=== PATIENT | male | born 1960 | race Caucasian/White ===

== ENCOUNTER 2016-07-08 15:27 | Inpatient (IN) | payer OTHER ==
[~2016-07-08] VITALS: Ht 172.7 cm; Wt 99.5 kg
[~2016-07-08 15:27] MED LIST: GABA100C4 PO; LORA-373 PO
[2016-07-08] MEDS ORDERED: FENT50DI T-DERMAL (16:52)
[2016-07-08 19:48] VITALS: BP 136/73; PULSE 106; RESP 20; TEMP 98; O2SAT 98
[2016-07-08] MEDS ORDERED: NALOXONE HCL 0.4 MG/ML AMP IV PRN (20:30)
[2016-07-08] MEDS: SODIUM CHLORIDE 0.9% FLUSH 10 ML FLUSH IV FLUSH SCH (21:51)
--- NOTE | 2016-07-08 22:24 | HHI.HP ---
[facility] Unknown Admission Diagnosis Diagnoses: History of Present Illness fell twice in 2 weeks first tiem walking out of room and foot got stuck with gym equipmenet and fell second time was next week- reaching out to pull curtain and roller got away from him from walker got away and fell again did not hit head d id not pass out did not go for med attention family called hospice staff got more euqipment to help at home on hospice at home has melaoma on right chest diagnosed 20yrs ago had sx had chemo adn radiation last dose chemo about 16-17yrs ago last radiation abotu same time too as far as he knows, no other intervention or med attention for this till now brother set him up on hospice about 2 weeks ago after fall Past Family Social History Past Medical History Melanoma Past Surgical History melanoma resection Reported Medications on pain meds from hospice Allergies: Coded Allergies: No Known Allergies (Unverified , 07/08/16) Family History none that he knows of Social History smoke 10-15 cigarrettes a day no drinking, used to drink heavily quit 4 yrs ago no drugs Physical Exam Physical Exam GENERAL: This is a well-nourished, well-developed patient, in no apparent distress. SKIN: Large left fungating wound with foul-smelling discharge HEAD: Atraumatic. Normocephalic. No temporal or scalp tenderness. EYES: No scleral icterus. No injection or drainage. ENT: Nose without bleeding, purulent drainage or septal hematoma. Airway patent. NECK: Trachea midline. No JVD CARDIOVASCULAR: Regular rate and rhythm without murmurs, gallops, or rubs. RESPIRATORY: Clear to auscultation. Breath sounds equal bilaterally. Abdomen: Soft, nontender, no rebound. No guarding. MUSCULOSKELETAL: Right foot with gangrenous toes. Surrounding erythema,. Poor dorsalis pedis pulses Neuro: Awake, alert, oriented. Normal speech. No focal deficits noted. Generalized weakness present. Assessment and Plan Assessment and Plan Impression: right foot gangrene right chest melanoma Plan: Patient was started on vancomycin and Zosyn per creatinine clearance and levels. Start patient on heparin drip. Physical surgery consult. Also would consult oncology since patient reports that he was actually lost to follow-up due to lack of insurance and he would really like to know why his melanoma is not healing and whether it has spread. He has no idea why he is on hospice. He stated this was only arranged about 2 weeks ago by his brother. As for as he knows his cancer has not spread anywhere. Consult palliative care to clarify goals of care as well. Patient reports he wants full code at present. DVT prophylaxiswith heparin drip. GI prophylaxis on pantoprazole. Physician Certification Order for Inpatient Services The services are ordered in accordance with Medicare regulations or non- Medicare payer requirements, as applicable. In the case of services not specified as inpatient-only, they are appropriately provided as inpatient services in accordance with the 2-midnight benchmark. days is the estimated time the patient will need to remain in the hospital, assuming treatment plan goals are met and no additional complications. Frank Gage MD July 08, 2016 22:24
[2016-07-08] MEDS ORDERED: Vancomycin Consult Pharmacy 1 EA OTHER SCH (22:45)
[2016-07-08] MEDS: MORPHINE SULFATE 4 MG/ML INJ IV PUSH PRN (22:48)
[2016-07-08] MEDS: PIPERACIL-TAZO 4.5 GM PREMIX 100 ML IV SCH (23:27)
[2016-07-08] MEDS: HEPARIN-D5W INJ 250 ML IV SCH (23:39)
[2016-07-09] VITALS (7 sets, daily range): BP systolic 73–141; BP diastolic 69–82; PULSE 110–123; RESP 20; TEMP 97.7–98.5; O2SAT 92–98
[2016-07-09] MEDS: MORPHINE SULFATE 4 MG/ML INJ IV PUSH PRN ×6 (01:54→23:36)
[2016-07-09] MEDS ORDERED: VANCOMYCIN 1,000 MG/NS 250 ML IV ONE ×2 (02:00)
[2016-07-09] MEDS: PIPERACIL-TAZO 4.5 GM PREMIX 100 ML IV SCH ×4 (05:13→23:35)
[2016-07-09 05:55] LABS: BASOPHIL # 0.1 TH/MM3 (0-0.2); BASOPHIL % 0.7 % (0.0-2.0); EOSINOPHIL % 0.4 % (0.0-4.0); HEMATOCRIT 30.1 % (39.0-51.0); HEMO FLAGS DIFF FINAL; LYMPH % 10.7 % (9.0-44.0); LYMPHOCYTE # 1.2 TH/MM3 (1.0-4.8); MEAN CELL VOLUME 92.8 FL (80.0-100.0); MEAN CORPUSCULAR HEMOGLOBIN 29.9 PG (27.0-34.0); MEAN CORPUSCULAR HGB CONC 32.2 % (32.0-36.0); MONO % 7.5 % (0.0-8.0); NEUT % 80.7 % (16.0-70.0); PLATELET COUNT 448 TH/MM3 (150-450); RED BLOOD COUNT 3.25 MIL/MM3 (4.50-5.90); RED CELL DISTRIBUTION WIDTH 19.9 % (11.6-17.2); WHITE BLOOD COUNT 11.1 TH/MM3 (4.0-11.0)
[2016-07-09 06:19] LABS: BICARBONATE 24.3 MEQ/L (21.0-32.0); POTASSIUM 4.1 MEQ/L (3.5-5.1)
[2016-07-09] MEDS: SODIUM CHLORIDE 0.9% FLUSH 10 ML FLUSH IV FLUSH SCH ×2 (09:00→19:37)
[2016-07-09] MEDS: PANTOPRAZOLE SOD 40 MG DELAYED RELEASE TAB PO SCH (09:00)
[2016-07-09] MEDS ORDERED: ENOXAPARIN SODIUM 40 MG/0.4 ML SYRINGE SQ SCH (09:00)
[2016-07-09] MEDS ORDERED: PNEUMOCOCCAL POLYVALENT INJ 25 MCG/0.5 ML SYR IM ONE (10:00)
[2016-07-09 12:43] LABS: APTT (PATIENT) 35.6 SEC (24.3-30.1)
[2016-07-09] MEDS: VANCOMYCIN 1,000 MG/NS 250 ML IV SCH ×2 (14:00)
--- NOTE | 2016-07-09 16:20 | PD.CONS ---
Consult Service Palliative Care . Consult Requested By Dr. Gage . Primary Care Physician Unknown . Reason for Consultation a. To assist with evaluation and management of symptoms including: pain RLE. b. To assist medical decision maker(s) with: better understanding of current medical conditions; weighing benefits/burdens of medical treatment options; making medical treatment decisions. . (RUTH EDOUARD) HPI History of Present Illness Mr. Quinones is a 56 year old male with past medical history of melanoma of right chest (20 years ago) with new wound in this area, PVD, COPD, bipolar disorder and tobacco abuse. Patient reports he had resection of melanoma 20 years ago, then he recently picked at the scar and it got worse. He is a poor historian. He reports foot wound for the past 3-4 weeks. Notes indicate he was on hospice prior to admission, he does not know which hospice and tells me they were coming to help him bathe. Patient presented to [facility] on 07/08/16 with right foot wound and pain. He is admitted with gangrene right LE. Oncology consult pending as patient has been lost to oncology follow up and has a wound in prior melanoma sight that is not healing. CTA runoff and CT foot pending. Dr. Tan was consulted for evaluation and recommendations regaridnf right foot gangrene. In meeting with colin today he is unable to provide clear history. He does not want to designate a health care surrogate. He is painful and restless during my visit. He is having difficulty concentrating. He will not allow me to see wound on chest. He tells me he is tired of all these people coming in and asking him questions. Iexplained we are all trying to help him. He desires FULL CODE, does not want to talk about advanced directives. He told me I could call his brother. I will attempt to speak with brother once additional consults/ tests are complete. Palliative care social media developer will attempt to call for additional social history and to obtain details of hospice history today. . Function/Cognitive Trajectory Appears he has had some decline, though he can only tell me he lives with his brother and sister in law and he needs help bathing. , (RUTH EDOUARD) Review of Systems Constitutional: COMPLAINS OF: Fatigue, Change in appetite (decreased), Pain ( right foot and chest intermittent), Generalized weakness Eyes: COMPLAINS OF: Blurred vision (wears readung glasses, but tells me he doesn't read. ) Respiratory: COMPLAINS OF: Cough, Shortness of breath Cardiovascular: COMPLAINS OF: Dyspnea on Exertion, Lower Extremity Edema ( bilateral) Gastrointestinal: COMPLAINS OF: Anorexia Musculoskeletal: COMPLAINS OF: Joint pain Integumentary: COMPLAINS OF: Abnormal pigmentation (right LE ), Non-healing sores (chest and Right LE) Hematologic/Lymphatics: COMPLAINS OF: Bruising Psychiatric: COMPLAINS OF: Anxiety, Depression, Agitation Other ROS: restlessness (RUTH EDOUARD) Past Family Social History Coded Allergies: No Known Allergies (Unverified , 07/08/16) Past Medical History Per pt report: Melanoma history COPD Tobacco and alcohol abuse Bipolar disorder . Past Surgical History Melanoma resection . Reported Medications Medication reconciliation gabapentin 100 mg PO TID lorazepam 0.5 mg PO Q6 hours PRN anxiety fentanyl patch 50 g every 72 hours . Current Medications Medications (Trade) Dose Ordered Sig/[place] Route Start Time Stop Time Status Last Admin (NS Flush) 2 ml UNSCH PRN IV FLUSH 07/08/16 20:30 (NS Flush) 2 ml BID IV FLUSH 07/08/16 21:00 07/09/16 09:00 (Narcan Inj) 0.4 mg UNSCH PRN IV 07/08/16 20:30 Morphine Sulfate 2 mg 2 mg Q3H PRN IV PUSH 07/08/16 22:30 07/09/16 11:45 Pharmacy Profile Note 0 ml @ 0 mls/hr UNSCH OTHER 07/08/16 22:45 Piperacillin Sod/ Tazobactam Sod 100 ml @ 200 mls/hr Q6H IV 07/08/16 23:00 07/09/16 11:00 (Heparin-D5W Inj) 250 ml @ 0 mls/hr TITRATE IV 07/08/16 22:45 07/08/16 23:39 Pantoprazole Sodium 40 mg 40 mg DAILY PO 07/09/16 09:00 07/09/16 09:00 (Vancomycin Inj/ NS 250 ml Inj) 250 ml @ 250 mls/hr Q12H IV 07/09/16 14:00 07/09/16 14:00 Miscellaneous Information SPECIFIC LAB TO BE DRAWN:VANCOMYCIN TROUGH DATE TO... ONCE ONCE .XX 07/10/16 01:45 07/10/16 01:46 . Family History Parents uncertain causes. Brother with ALS. . Substance Use Per pt report: Tobacco: Smokes 10-15 cigarettes per day for 40 years. Alcohol: Drank heavily until 4 years ago. Prescription med abuse: None. Illicits:Marijuana use until 4 years ago. . Psychosocial History Not , No children. Lives with brother and sister in law. 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 Completed 10th grade. . Spiritual/Cultural Factors Not an important part of his life. . (RUTH EDOUARD) Past Medical History Alcohol abuse Bipolar manic depressive- 1-2 year cycle period- multiple psychiatric admissions Reportedly diagnosed with melanoma around age 28-30, essentially untreated. Some radiation while in assisted for 2 years. Refused surgery around 2.5 years ago, now reportedly metastatic. . Reported Medications Prior to hospice ([facility]) admission patient was on Depakote and Latuda, unknown dosage. . Family History Parents and siblings alcoholics or recovering alcoholics. Siblings with manic depression. . Psychosocial History Originally from [place]. Moved to [place] in 1968. Not . No children. 3 brothers. Patient has minimal contact with 2 other brothers. Lives with 1 brother and sister in law for past 2.5 years. Described as "nonsocial". Patient was on [facility] prior to this hospitalization. He was seeing a psychiatrist up until admission to hospice. Brother reports Mr. Quinones has manic depression with a 1-2 year cycle. Currently off medication, in past has taken Depakote and Latuda, dosage unknown. Reportedly multiple psychiatric admissions. Struggled with alcoholism up until into brother's home. . (Estrella Alexandra YARN PREPARATION SUPERVISOR, SERVICE SUPERVISOR) Living Will: Never completed Health Care Surrogate: Never completed Durable Power of Tool Turret Lathe Set Up Operator: Never completed Health Care Surrogate(s): Patient considering completing designation of healthcare surrogate form. Indicates he would likely want his brotherDinh to serve as healthcare surrogate. Will attempt to determine if he completed advance directives while on hospice services. . Today's verbally stated goals: Desires FULL CODE and continued aggressive care. Indicates he would want amputation if needed. . Family/friends goals: Will attempt to speak with patient's brother once additional medical tests/ consultations are available on 07/10/16. . Ethical and Legal Issues Patient considering completing designation of healthcare surrogate form. Indicates he would likely want his brother, Dinh to serve as healthcare surrogate. Will attempt to determine if he completed advance directives while on hospice services. . (RUTH EDOUARD) Physical Exam Vital Signs Date Time Temp Pulse Resp B/P Pulse Ox O2 Delivery O2 Flow Rate FiO2 07/09/16 12:00 98.2 110 20 121/69 98 07/09/16 08:00 94 Room Air 07/09/16 08:00 98.4 120 20 114/75 97 07/09/16 04:00 98.5 117 20 73/ 94 07/09/16 00:00 98.1 123 20 138/75 95 07/08/16 21:55 Room Air 07/08/16 19:48 98.0 106 20 136/73 98 07/08/16 07/09/16 19:00 07:00 Intake Total 240 ml Output Total 400 ml Balance -160 ml Intake Oral 240 ml Output Urine Total 400 ml Exam CONSTITUTIONAL/GENERAL: This is an thin, chronically ill appearing patient, appears restless during my visit. Having a difficult time concentrating. TUBES/LINES/DRAINS: PIV left AC, right forearm. SKIN: peripheral vascular changes redness, erythema right lower extremity toes to mid calf, gangrenous toes right foot. Ecchymoses on upper extremities. Dressing present chest wall, wound not examined. Skin temperature appropriate. Not diaphoretic. HEAD: Atraumatic. Normocephalic. EYES: Pupils equal and round and reactive. Extraocular motions intact. No scleral icterus. No injection or drainage. Fundi not examined. ENT: Hearing grossly normal. Nose without bleeding or purulent drainage. Throat without visible erythema, exudates, masses, or lesions. NECK: Trachea midline. CARDIOVASCULAR: tachycardic. No JVD. RESPIRATORY/CHEST: Symmetric, mildly labored respirations at rest. Diminished breath sounds bilaterally. GASTROINTESTINAL: Abdomen soft, non-tender, nondistended. GENITOURINARY: Without palpable bladder distension. Voids in urinal. MUSCULOSKELETAL: Extremities with edema. Gangrenous toes right foot. LYMPHATICS: not examined. NEUROLOGICAL: Awake and alert. Generalized weakness. Easily agitated. Cognitively sharp. Moves all extremities. PSYCHIATRIC: agitated, restlessness, verbalizes annoyance with questioning exam of multiple providers. . (RUTH EDOUARD) Diagnostic Tests Laboratory Laboratory Tests Test 07/09/16 07/09/16 05:23 12:00 White Blood Count 11.1 TH/MM3 (4.0-11.0) Red Blood Count 3.25 MIL/MM3 (4.50-5.90) Hemoglobin 9.7 GM/DL (13.0-17.0) Hematocrit 30.1 % (39.0-51.0) Mean Corpuscular Volume 92.8 FL (80.0-100.0) Mean Corpuscular Hemoglobin 29.9 PG (27.0-34.0) Mean Corpuscular Hemoglobin 32.2 % Concent (32.0-36.0) Red Cell Distribution Width 19.9 % (11.6-17.2) Platelet Count 448 TH/MM3 (150-450) Mean Platelet Volume 6.4 FL (7.0-11.0) Neutrophils (%) (Auto) 80.7 % (16.0-70.0) Lymphocytes (%) (Auto) 10.7 % (9.0-44.0) Monocytes (%) (Auto) 7.5 % (0.0-8.0) Eosinophils (%) (Auto) 0.4 % (0.0-4.0) Basophils (%) (Auto) 0.7 % (0.0-2.0) Neutrophils # (Auto) 9.0 TH/MM3 (1.8-7.7) Lymphocytes # (Auto) 1.2 TH/MM3 (1.0-4.8) Monocytes # (Auto) 0.8 TH/MM3 (0-0.9) Eosinophils # (Auto) 0.0 TH/MM3 (0-0.4) Basophils # (Auto) 0.1 TH/MM3 (0-0.2) CBC Comment DIFF FINAL Differential Comment Activated Partial 40.0 SEC 35.6 SEC Thromboplast Time (24.3-30.1) (24.3-30.1) Sodium Level 130 MEQ/L (136-145) Potassium Level 4.1 MEQ/L (3.5-5.1) Chloride Level 96 MEQ/L (98-107) Carbon Dioxide Level 24.3 MEQ/L (21.0-32.0) Anion Gap 10 MEQ/L (5-15) Blood Urea Nitrogen 7 MG/DL (7-18) Creatinine 0.65 MG/DL (0.60-1.30) Estimat Glomerular Filtration 126 ML/MIN Rate (>89) Random Glucose 98 MG/DL (74-106) Calcium Level 8.9 MG/DL (8.5-10.1) (RUTH EDOUARD) Result Diagram: 07/09/1623 07/09/16522 Patient/Family Conference Present at Family Conference: Met with patient at bedside. Family Conference Time (mins): 40 Family Conference Location: Bedside Issues Discussed: * Palliative care role, purpose, approach * Additional medical, psychosocial, and spiritual history * Patients general health, functional status, and cognitive changes in the months leading up to the current hospitalization * Patient/family understanding of the current medical problems * Patient/family understanding of prognosis * Patients goals of care as best understood from advance directives and/or conversations and/or values * Current medical treatment options and benefits/burdens of those options * Likely scenarios comparing ongoing aggressive care with a transition to comfort measures only * Questions answered to the best of my ability * Palliative care contact information provided In summary patient is a poor historian, he tells me he does not want surgery today, though indicates he would want surgery/even amputation if needed. He does not seem to have great insight. Would recommend shared decision-making with patient's brother. Palliative care will continue to attempt to complete advanced directives with this patient. Will continue to clarify goals once additional consults and testing are complete. . (RUTH EDOUARD) Assessment and Plan Disease Oriented Problem List: (1) Cellulitis of foot (2) Gangrene (3) History of melanoma Comment: Chest wound (4) COPD (chronic obstructive pulmonary disease) (5) Bipolar disorder Symptom Scale: (1) Pain 0-10 Scale: 10 Comment: Intermittent, burning pain in right foot, intermittent pain in chest wound site, no relief with medications . (2) Anxiety 0-10 Scale: Unable to quantify Comment: Indicates intermittent anxiety, and long history of anxiety, appears restless and agitated during my visit, does not quantify anxiety. Pertinent Non-Medical Issues Psychosocial: Single. No children. Lives with brother and sister in law. Spiritual: Not an important part of his life. Legal: Patient considering completing designation of healthcare surrogate form. Indicates he would likely want his brotherDinh to serve as healthcare surrogate. Will attempt to determine if he completed advance directives while on hospice services. Ethical issues impacting care: No known concerns at this time. . Important Contacts * Dinh Quinones, brother: [phone] or [phone] * Princess Quinones, [id number]: [phone] . Prognosis Mr. Quinones is a frail, chronically ill appearing 56-year-old gentleman with gangrene right lower extremity, overall prognosis appears poor. Patient was on hospice services prior to admission, appears hospice appropriate of goals are comfort oriented. . Code Status: Full Code Plan * Patient considering completing designation of healthcare surrogate form. Indicates he would likely want his brotherDinh to serve as healthcare surrogate. Will attempt to determine if he completed advance directives while on hospice services. Recommend shared decision-making at this time is the patient has limited insight and is a poor historian. * FULL CODE. * Patient verbalizes desire for CODE and aggressive care including amputation if needed. He is a poor historian with limited insight, would recommend shared decision-making. Will attempt to complete advance directives and speak with his brothlyndsay Tao once additional test/consult completed. * Will attempt to discuss case with medical oncology, Dr. Tan once additional test results are available. * Estrella Carter LCSW contacted brother Dinh to introduce palliative care services and obtain additional social information. Will follow-up with medical update call on 07/10/16. * SYMPTOMS: pain: likely secondary to severe peripheral vascular disease/ gangrene right lower extremity. Was on fentanyl patch 50 g prior to admission. Has PRN morphine 2 mg IV Q3 hours PRN available. Will monitor need. Anxiety: self-reports history of anxiety, bipolar disorder, appears restless during my visit. Was on lorazepam prior to admission. Will monitor PRN need for pain control and make further recommendations. * Palliative care number provided. * Palliative care will continue to follow throughout hospital course to assist with symptom management and further clarification of treatment goals. (RUTH EDOUARD) Thank you for the opportunity to participate in the care of Mr. Quinones. (RUTH EDOUARD) Attestation To help prompt me to consider important information that might be impacting today's encounter and assessment, information from prior notes written by myself or my colleagues may have been "brought forward" into today's note. My signature on this note, however, is an attestation that I personally performed the exam, history, and/or decision-making noted today, and, unless otherwise indicated, the interactions with patient, family, and staff as well as the review of records all occurred today. I also attest that the listed assessment and stated plan reflect my best clinical judgment today based on the combination of historical information, prior notes, and today's exam/ interactions. When time spent is documented, it refers only to time spent today by the signer, or if indicated, combined time spent today by collaborating physician/nurse practitioner. (RUTH EDOUARD) RUTH EDOUARD Jul 09, 2016 16:20 Estrella Alexandra, SERVICE SUPERVISOR Jul 09, 2016 16:54
--- NOTE | 2016-07-09 18:35 | HHI.PR ---
Subjective Remarks patient inquiring about surgery denies any pain currently of the foot or chest 2 weeks ago- stuck his foot increasing pain and swelling discoloration of the toes Objective Vitals Vital Signs Date Time Temp Pulse Resp B/P Pulse Ox O2 Delivery O2 Flow Rate FiO2 07/09/16 16:00 97.7 110 20 123/82 94 07/09/16 12:00 98.2 110 20 121/69 98 07/09/16 09:00 18 07/09/16 08:00 94 Room Air 07/09/16 08:00 98.4 120 20 114/75 97 07/09/16 04:00 98.5 117 20 73/ 94 07/09/16 00:00 98.1 123 20 138/75 95 07/08/16 21:55 Room Air 07/08/16 19:48 98.0 106 20 136/73 98 I/O 07/08/16 07/08/16 07/08/16 07/09/16 07/09/16 07/09/16 07:00 15:00 23:00 07:00 15:00 23:00 Intake Total 240 ml 360 ml Output Total 400 ml 500 ml Balance -160 ml -140 ml Intake Oral 240 ml 360 ml Output Urine Total 400 ml 500 ml # Bowel Movements 0 Result Diagram: 07/09/16 0523 07/09/16522 Objective Remarks awake and alert, oriented x 3 anicteric lungs no rales chest wall wound- gauze dressing in place regular rhythm, tachycardic- 110 abdomen soft, nontender right foot- with marked swelling and erythema with gangrenous toes A/P Assessment and Plan 56 years old male Acute Right foot gangrene with cellulitis underlying PVD- seen at [facility]- ER- culture- growing gram negative rods -continue on IV antibiotics- Zosyn and Vanco - Vascular surgery consult- evaluate for amputation - on Heparin drip - checK CTA aorta run off . CT of the foot - percocet prn for pain History of right chest melanoma -OP ff up with Oncology - at one point under hospice- palliative care consulted HYponatremia- check TSH DVT prophylaxiswith heparin drip. GI prophylaxis on pantoprazole. Adelina Tafoya MD Jul 09, 2016 18:35
[2016-07-09] MEDS ORDERED: oxyCODONE/ACETAMINOPHEN 5 MG/325 MG TAB PO PRN (19:00)
[2016-07-09] MEDS: SODIUM CHLOR 0.9% 1000 ML INJ 1,000 ML IV SCH (19:41)
--- NOTE | 2016-07-09 20:37 | PD.CAR.PN ---
CVT Progress Note Subjective/Hospital Course: Referral received Full consult TF Stacy J Objective: Vital Signs Date Time Temp Pulse Resp B/P Pulse Ox O2 Delivery O2 Flow Rate FiO2 07/09/16 16:00 97.7 110 20 123/82 94 07/09/16 12:00 98.2 110 20 121/69 98 07/09/16 09:00 18 07/09/16 08:00 94 Room Air 07/09/16 08:00 98.4 120 20 114/75 97 07/09/16 04:00 98.5 117 20 73/ 94 07/09/16 00:00 98.1 123 20 138/75 95 07/08/16 21:55 Room Air Labs: Laboratory Tests Test 07/09/16 07/09/16 12:00 19:12 Activated Partial 35.6 SEC 43.0 SEC Thromboplast Time (24.3-30.1) (24.3-30.1) Result Diagram: 07/09/16 0523 07/09/16 0523 Vanessa Tan MD Jul 09, 2016 20:37
[2016-07-09] MEDS: HEPARIN-D5W INJ 250 ML IV SCH (23:45)
[2016-07-10] VITALS: BP 132/75; PULSE 113; RESP 20; TEMP 98; O2SAT 97
[2016-07-10] MEDS ORDERED: PHARMACY ORDERED LAB ONE (01:45)
[2016-07-10 02:08] LABS: APTT (PATIENT) 33.8 SEC (24.3-30.1)
[2016-07-10] MEDS: MORPHINE SULFATE 4 MG/ML INJ IV PUSH PRN ×4 (02:39→22:40)
[2016-07-10 02:40] LABS: ANION GAP 13 MEQ/L (5-15); BICARBONATE 22.9 MEQ/L (21.0-32.0); BLOOD UREA NITROGEN 6 MG/DL (7-18); CHLORIDE 96 MEQ/L (98-107); POTASSIUM 3.5 MEQ/L (3.5-5.1); SODIUM (NA) 132 MEQ/L (136-145)
[2016-07-10] MEDS: VANCOMYCIN 1,000 MG/NS 250 ML IV SCH ×6 (02:41→18:00)
[2016-07-10 02:48] LABS: ALKALINE PHOSPHATASE 90 U/L (45-117); ALT (GPT) 17 U/L (12-78); AST (GOT) 31 U/L (15-37); FERRITIN 770 NG/ML (26-388); GLOMERULAR FILTRATION RATE 147 ML/MIN (>89); TOTAL BILIRUBIN ADULT 0.6 MG/DL (0.2-1.0); TRANSFERRIN IRON PROFILE 110 MG/DL (200-360); VANCOMYCIN TROUGH 8.9 MCG/ML (5.0-10.0)
[2016-07-10 04:00] VITALS: BP 117/74; PULSE 119; RESP 20; TEMP 98; O2SAT 96
[2016-07-10] MEDS: PIPERACIL-TAZO 4.5 GM PREMIX 100 ML IV SCH ×5 (05:54→22:39)
[2016-07-10] MEDS ORDERED: LACTATED RINGER'S 1000 ML IV PRN (06:15)
[2016-07-10] MEDS ORDERED: INSULIN HUMAN REGULAR 1,000 UNITS/10 ML VIAL SQ PRN (06:15)
[2016-07-10] MEDS ORDERED: METOPROLOL TARTRATE 25 MG TAB PO PRN (06:15)
[2016-07-10] MEDS ORDERED: SODIUM CHLORID 0.9% 500 ML IV PRN (06:15)
[2016-07-10] MEDS ORDERED: CHLORHEXIDINE GLUCONATE 2 % 1 PACK (2 CLOTHS) TOPICAL PRN (06:15)
[2016-07-10] MEDS ORDERED: POVIDONE IODINE 5% (ANTISEPSIS KIT) 4 APPLICATIONS EACH NARE PRN (06:15)
--- NOTE | 2016-07-10 07:21 | MB ---
cc: BELIA LAZCANO MD DATE OF 1960 DATE OF SERVICE 07/09/[address] Lazcano CHIEF COMPLA[address] Lazcano requests consultation for Mr. Quinones with a diagnosis of recurrent malignant melanoma. HISTORY OF PRESENT ILLNESS Mr. Quinones is 56-year-old man with history of malignant melanoma of his chest wall which has been resected before. It has recurred. He presented after falling. He is actually under the care of [facility]. He is not able to tell me who referred him to Hospice. His philosophy is consistent with Hospice care. He actually did not want to participate in the consultation today. He states that he has explained his story many times to other doctors before. He does not want any radiation or chemotherapy. He does not want anything done to his right chest wall wound. His acute problem is the right lower extremity gangrene. He was started on antibiotic therapy and heparin. Surgery was consulted. He wishes to have aggressive management for his foot but not for his malignant melanoma. Palliative care was consulted. He was seen earlier. He complains of pain. He has difficulty walking. He reports picking at his wound and slight bleeding at sometimes. PAST MEDICAL HISTORY 1. Malignant melanoma recurrent. 2. COPD . 3. Chronic tobacco use. 4. Bipolar disorder. PAST SURGICAL HISTORY Melanoma resection. FAMILY HISTORY A brother with ALS. Parents . SOCIAL HISTORY He is an active smoker and drank heavily until 4 years ago. Denies any illicit drug use. Previously used marijuana. He lives with his brother and [id number]. PHYSICAL EXAMINATION VITAL SIGNS: Temperature 97.7, heart rate 110, respiratory rate 20, blood pressure 123/82, saturation 94%. GENERAL: Mr. Quinones is a chronically ill-appearing man who looks older than stated age. He has been cachectic. HEENT: He has bitemporal wasting. He is unshaven. His pupils are round and reactive to light and accommodation. Oropharynx is clear. NECK: Supple. LUNGS: Clear. CARDIOVASCULAR EXAM: Tachycardia. ABDOMEN: Benign. LOWER EXTREMITIES: With bilateral swelling, right more prominent than the left. There is gangrene of the right foot, mottled appearance with hyperpigmentation. LABORATORY DATA Leukocytosis, mild anemia with hemoglobin of 9.7. Chemistry: Sodium 130. ASSESSMENT AND PLAN: Mr. Quinones is a 56-year-old man with a history of malignant melanoma resected 20 years ago, now has a recurrence. He has an ulcer on his right chest wall. It is packed and has a wound. He declines treatment for that. He declines chemotherapy and radiation. I am unable to help this gentleman. He has also already decided at some point to proceed with Hospice care. I recommend he follow up with palliative care for palliative management of his symptoms. No specific therapy is required from the oncology standpoint. I defer any workup was he does not desire any treatment. His questions were answered to his satisfaction. Oncology will sign off at this point. Cheryl Tomlin MD RAD/JUSTIN /6:48 PM /6:54 AM
[2016-07-10 08:00] VITALS: BP 131/77; PULSE 126; RESP 18; TEMP 98; O2SAT 94
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
[2016-07-10 09:00] VITALS: PULSE 110
[2016-07-10] MEDS ORDERED: BUPIVACAINE HCL PF 0.5% 30 ML VIAL NERV BLOCK ONE (09:00)
[2016-07-10] MEDS: PANTOPRAZOLE SOD 40 MG DELAYED RELEASE TAB PO SCH (09:00)
[2016-07-10] MEDS: SODIUM CHLORIDE 0.9% FLUSH 10 ML FLUSH IV FLUSH SCH ×2 (09:00→22:44)
[2016-07-10] MEDS ORDERED: PHENYLEPHRINE HCL 10 MG/ML VIAL IV ONE (09:10)
[2016-07-10] MEDS ORDERED: NORMOSOL R INJ 1,000 ML IV ONE (09:10)
[2016-07-10] MEDS ORDERED: PHENYLEPH/NS 1000 MCG/10 ML SYR IV ONE (09:10)
[2016-07-10] MEDS ORDERED: PROPOFOL 200 MG/20 ML AMP IV ONE (09:10)
--- NOTE | 2016-07-10 10:47 | PD.VS.CON ---
History of Present Illness Chief Complaint: right foot with rest pain for about 2-3 weeks with discoloration. Consult Requested by: Dr. Jordan History of Present Illness 56 year old male with right foot rest pain and discoloration and ischemic changes of his toes to his mid foot that has worsened over the past week. Past/Family/Social History Past Medical History neuropathy chronic pain right lower extremity. Home Medications Reported Medications Fentanyl Patch 72 HR 50 Mcg/Hr Patch50 Mcg T-DERMAL Q72H #10 PATCH Ref 0 Remove old patch when new one placed. 07/08/16 Lorazepam 0.5 Mg Tab0.5 Mg PO Q6H PRN (ANXIETY) Ref 0 07/08/16 Gabapentin 100 Mg Pwm850 Mg PO TID #90 CAP Ref 0 07/08/16 Coded Allergies: No Known Allergies (Unverified , 07/08/16) Physical Exam Vitals/I&O Date Time Temp Pulse Resp B/P Pulse Ox O2 Delivery O2 Flow Rate FiO2 07/10/16 08:00 98.0 126 18 131/77 94 07/10/16 04:00 98.0 119 20 117/74 96 07/10/16 00:00 98.0 113 20 132/75 97 07/09/16 20:19 116 07/09/16 20:00 98.0 116 20 141/79 92 07/09/16 19:30 Room Air 07/09/16 16:00 97.7 110 20 123/82 94 07/09/16 12:00 98.2 110 20 121/69 98 07/10/16 07/10/16 07/10/16 07:00 15:00 23:00 Output Total 400 ml Balance -400 ml Neuro: A&Ox3 Neck: no carotid bruits Heart: regular Lungs: CTA bilaterally Abdomen: soft and ND Vascular: No signals right DP or PT with cold cadaveric appearing foot. ischemic gangrenous changes of the toes and the dorsum of the foot with erythema extending across the level of the ankle. Triphasic signals bilateral femoral. left radial palpable and right radial absent. Laboratory Tests Test 07/09/16 07/09/16 07/10/16 07/10/16 12:00 19:12 01:10 02:00 Activated Partial 35.6 43.0 33.8 Thromboplast Time Sodium Level 132 Potassium Level 3.5 Chloride Level 96 Carbon Dioxide Level 22.9 Anion Gap 13 Blood Urea Nitrogen 6 Creatinine 0.57 Estimat Glomerular Filtration 147 Rate Random Glucose 100 Calcium Level 9.4 Iron Level 46 Total Iron Binding Capacity 154 Percent Iron Saturation 29.9 Ferritin 770 Total Bilirubin 0.6 Aspartate Amino Transf 31 (AST/SGOT) Alanine Aminotransferase 17 (ALT/SGPT) Alkaline Phosphatase 90 Total Protein 7.1 Albumin 2.7 Thyroid Stimulating Hormone 4.000 3rd Gen Vancomycin Level Trough 8.9 Blood Type A NEGATIVE Antibody Screen NEGATIVE Crossmatch Leukocyte-Reduced Red Blood Cells Blood Bank Comment Test 07/10/16 02:05 Blood Type A NEGATIVE Assessment and Plan Assessment: (1) Cellulitis of foot Status: Acute (2) Pain Status: Acute (3) Gangrene Status: Acute Plan 56 year old male scheduled for right lower extremity amputation today. Right foot is cadaveric with ischemic changes (gangrene of the toes extending proximally with ascending cellulitis). I agree with Dr. Jordan that the patient should undergo amputation of the right lower extremity. The right foot does not appear viable and is a risk to the patient. I discussed this with the patient. Mario Sun DO, FACS Resource Manager of Vascular Surgery KEYANA/Mario Harmon DO Jul 10, 2016 10:47
--- NOTE | 2016-07-10 11:05 | HHI.PR ---
Subjective Remarks anxious about the procedure no pain complains at present Objective Vitals Vital Signs Date Time Temp Pulse Resp B/P Pulse Ox O2 Delivery O2 Flow Rate FiO2 07/10/16 08:00 98.0 126 18 131/77 94 07/10/16 04:00 98.0 119 20 117/74 96 07/10/16 00:00 98.0 113 20 132/75 97 07/09/16 20:19 116 07/09/16 20:00 98.0 116 20 141/79 92 07/09/16 19:30 Room Air 07/09/16 16:00 97.7 110 20 123/82 94 07/09/16 12:00 98.2 110 20 121/69 98 I/O 07/09/16 07/09/16 07/09/16 07/10/16 07/10/16 07/10/16 07:00 15:00 23:00 07:00 15:00 23:00 Intake Total 240 ml 360 ml 650 ml Output Total 400 ml 500 ml 880 ml 400 ml Balance -160 ml -140 ml -230 ml -400 ml Intake Oral 240 ml 360 ml IV Total 650 ml Output Urine Total 400 ml 500 ml 400 ml 400 ml Stool Total 480 ml # Bowel Movements 0 Result Diagram: 07/09/16 0523 07/10/16 0110 Objective Remarks awake and alert, oriented x 3 anicteric lungs no rales chest wall deep open wound- gauze dressing in place regular rhythm, tachycardic- 110 abdomen soft, nontender right foot- with marked swelling and erythema with gangrenous toes A/P Assessment and Plan 56 years old male Acute Right foot gangrene with cellulitis underlying PVD- - growing gram negative rods -continue on IV antibiotics- Zosyn and Vanco - Vascular surgery taking him to OR today - on Heparin drip- held for surgery - percocet prn for pain History of right chest melanoma -OP ff up with Oncology - at one point under hospice- palliative care consulted - wound care team consult HYponatremia- asymptomatic. TSH pending from this am DVT prophylaxiswith heparin drip. GI prophylaxis on pantoprazole. Adelina Tafoya MD Jul 10, 2016 11:05
[2016-07-10] MEDS ORDERED: MORPHINE SULFATE 4 MG/ML INJ IV PUSH ONE ×2 (11:20→11:25)
[2016-07-10] MEDS ORDERED: MIDAZOLAM HCL 2 MG/2 ML VIAL ONE (11:33)
[2016-07-10] MEDS ORDERED: ACETAMINOPHEN 1000 MG/100 ML VIAL IV ONE (11:41)
[2016-07-10] MEDS ORDERED: fentaNYL CITRATE 250 MCG/5 ML AMP ONE (11:42)
[2016-07-10] MEDS ORDERED: *morphine SULFATE 8 MG/ML PERIprocedure ONLY ONE ×3 (13:32→13:49)
[2016-07-10] MEDS ORDERED: DO NOT ADM ANY ANTICOAGULANT DRUGS PRN (13:45)
[2016-07-10] MEDS ORDERED: *HYDROmorphone PF 1 MG VIAL PERIprocedural Use ONLY ONE ×2 (13:53→14:06)
[2016-07-10] MEDS ORDERED: LORazepam 2 MG/ML VIAL ONE (14:14)
[2016-07-10] MEDS: SODIUM CHLOR 0.9% 1000 ML INJ 1,000 ML IV SCH (14:28)
[2016-07-10] MEDS ORDERED: LORazepam 2 MG/ML VIAL IV PUSH ONE (14:30)
--- NOTE | 2016-07-10 15:06 | HHI.HCPN ---
Arrived to unit patient is off the floor, appears to have been taken to the operating room. Palliative care will continue to follow. . RUTH EDOUARD Jul 10, 2016 15:06
[2016-07-10 16:00] VITALS: BP 92/55; PULSE 94; RESP 18; TEMP 97.6; O2SAT 92
[2016-07-10 20:00] VITALS: BP 113/66; PULSE 100; PULSE 95; RESP 20; TEMP 97.7; O2SAT 99
[2016-07-11] VITALS (7 sets, daily range): BP systolic 91–117; BP diastolic 55–66; PULSE 93–115; RESP 18–20; TEMP 97.5–98.4; O2SAT 91–100
[2016-07-11] MEDS ORDERED: PHARMACY ORDERED LAB ONE (01:45)
[2016-07-11] MEDS: MORPHINE SULFATE 4 MG/ML INJ IV PUSH PRN ×5 (01:57→20:02)
[2016-07-11] MEDS: VANCOMYCIN 1,000 MG/NS 250 ML IV SCH ×4 (01:57→09:02)
[2016-07-11] MEDS: PIPERACIL-TAZO 4.5 GM PREMIX 100 ML IV SCH ×4 (05:43→22:07)
[2016-07-11 08:10] LABS: HEMATOCRIT 28.4 % (39.0-51.0); MEAN CELL VOLUME 92.1 FL (80.0-100.0); MEAN CORPUSCULAR HEMOGLOBIN 31.1 PG (27.0-34.0); MEAN CORPUSCULAR HGB CONC 33.7 % (32.0-36.0); PLATELET COUNT 411 TH/MM3 (150-450); RED BLOOD COUNT 3.08 MIL/MM3 (4.50-5.90); RED CELL DISTRIBUTION WIDTH 19.7 % (11.6-17.2); REVIEW FLAG FINAL; WHITE BLOOD COUNT 8.4 TH/MM3 (4.0-11.0)
[2016-07-11] MEDS: SODIUM CHLORIDE 0.9% FLUSH 10 ML FLUSH IV FLUSH SCH ×2 (08:56→21:00)
[2016-07-11] MEDS: PANTOPRAZOLE SOD 40 MG DELAYED RELEASE TAB PO SCH (09:00)
--- NOTE | 2016-07-11 11:29 | PD.CAR.PN ---
CVT Progress Note Subjective/Hospital Course: Referral received Full consult BRUNO Juarez 07/11/16 Patient is status post right below-knee amputation. Incision is clean and dry Dressing intact We'll keep dressing until Wednesday Nothing to add to care Objective: Vital Signs Date Time Temp Pulse Resp B/P Pulse Ox O2 Delivery O2 Flow Rate FiO2 07/11/16 08:00 97.5 110 18 115/63 91 07/11/16 04:00 98.0 106 20 104/56 96 07/11/16 00:00 97.9 93 20 92/55 100 07/10/16 20:45 Room Air 07/10/16 20:00 100 07/10/16 20:00 97.7 95 20 113/66 99 07/10/16 16:00 97.6 94 18 92/55 92 07/10/16 14:45 102 20 101/59 96 Nasal Cannula 2 07/10/16 14:30 107 20 114/87 96 Nasal Cannula 2 07/10/16 14:15 110 20 125/75 97 Nasal Cannula 2 07/10/16 14:00 106 20 114/68 95 Nasal Cannula 2 07/10/16 13:45 106 20 107/70 94 Nasal Cannula 2 07/10/16 13:22 98.1 96 20 109/71 100 Nasal Cannula 2 Labs: Laboratory Tests Test 07/11/16 07/11/16 01:55 07:50 Vancomycin Level Trough 20.5 MCG/ML (5.0-10.0) White Blood Count 8.4 TH/MM3 (4.0-11.0) Red Blood Count 3.08 MIL/MM3 (4.50-5.90) Hemoglobin 9.6 GM/DL (13.0-17.0) Hematocrit 28.4 % (39.0-51.0) Mean Corpuscular Volume 92.1 FL (80.0-100.0) Mean Corpuscular Hemoglobin 31.1 PG (27.0-34.0) Mean Corpuscular Hemoglobin 33.7 % Concent (32.0-36.0) Red Cell Distribution Width 19.7 % (11.6-17.2) Platelet Count 411 TH/MM3 (150-450) Mean Platelet Volume 6.2 FL (7.0-11.0) Result Diagram: 07/11/16 0750 07/10/16 0110 Vanessa Tan MD Jul 11, 2016 11:29
[2016-07-11] MEDS: SODIUM CHLOR 0.9% 1000 ML INJ 1,000 ML IV SCH (12:14)
--- NOTE | 2016-07-11 13:48 | HHI.PR ---
Subjective Remarks in pain Objective Vitals Vital Signs Date Time Temp Pulse Resp B/P Pulse Ox O2 Delivery O2 Flow Rate FiO2 07/11/16 12:00 98.4 104 20 91/57 96 07/11/16 08:25 Room Air 07/11/16 08:00 97.5 110 18 115/63 91 07/11/16 04:00 98.0 106 20 104/56 96 07/11/16 00:00 97.9 93 20 92/55 100 07/10/16 20:45 Room Air 07/10/16 20:00 100 07/10/16 20:00 97.7 95 20 113/66 99 07/10/16 16:00 97.6 94 18 92/55 92 07/10/16 14:45 102 20 101/59 96 Nasal Cannula 2 07/10/16 14:30 107 20 114/87 96 Nasal Cannula 2 07/10/16 14:15 110 20 125/75 97 Nasal Cannula 2 07/10/16 14:00 106 20 114/68 95 Nasal Cannula 2 I/O 07/10/16 07/10/16 07/10/16 07/11/16 07/11/16 07/11/16 07:00 15:00 23:00 07:00 15:00 23:00 Intake Total 1175 ml 480 ml 580 ml Output Total 400 ml 900 ml 1200 ml 550 ml Balance -400 ml 275 ml -720 ml 30 ml Intake Oral 480 ml 580 ml IV Total 175 ml Other 1000 ml Output Urine Total 400 ml 850 ml 1200 ml 550 ml Estimated Blood Loss 50 ml # Bowel Movements 0 0 Result Diagram: 07/11/16 0750 07/10/16 0110 Objective Remarks awake and alert, oriented x 3 anicteric lungs no rales chest wall deep open wound- gauze dressing in place regular rhythm abdomen soft, nontender right BKA- post op dressing in place LLE- good peripheral pulses Procedures 07/10- right BKA A/P Assessment and Plan 56 years old male S/P right BKA 07/10 for Acute Right foot gangrene with cellulitis underlying PVD- - cultures from 07/08- Pseudomonas/Enetrobacter -continue on IV antibiotics- Zosyn. - sensitive to Zosyn. enterobacter sensitivity pendin- continue on Vanco for now - Vascular surgery ff - percocet prn for pain -increase IV Morphine. DC IV Dilaudid restart his Gabapentin 100 mg tid History of right chest melanoma -OP ff up with Oncology - at one point under hospice- palliative care consulted - wound care team ff HYponatremia- asymptomatic. TSH normal DVT prophylaxiswith heparin drip. GI prophylaxis on pantoprazole. Adelina Tafoya MD Jul 11, 2016 13:48
[2016-07-11] MEDS ORDERED: HYDROmorphone HCL PF 1 MG/ML VIAL IV PUSH PRN (14:00)
--- NOTE | 2016-07-11 15:15 | EKG ---
Date Performed: 07/10/2016 Time Performed: 03:01:52 PTAGE: 56 years EKG: Marked baseline artifact makes interpretation very difficult Nonspecific ST-T changes NO PREVIOUS TRACING Recommend repeat tracing of better quality DOCTOR: Agustin Alvarez Interpretating Date/Time 07/11/2016 15:13:18
[2016-07-11] MEDS: oxyCODONE/ACETAMINOPHEN 5 MG/325 MG TAB PO PRN ×2 (17:46→22:07)
[2016-07-11] MEDS: VANCOMYCIN INJ 750 MG in SODIUM CHLOR 0.9% 250 ML INJ 250 ML IV SCH (18:04)
[2016-07-11] MEDS: GABAPENTIN 100 MG CAP PO SCH (18:04)
[2016-07-11] MEDS: fentaNYL 50 MCG/HR PATCH T-DERMAL SCH (20:02)
--- NOTE | 2016-07-11 20:41 | MP ---
cc: TAMERA WILKINS MD DATE OF SURGERY 07/10/16 PREOPERATIVE DIAGNOSIS Gangrene of the right foot and peripheral vascular disease, diabetes mellitus. POSTOPERATIVE DIAGNOSIS Gangrene of the right foot and peripheral vascular disease, diabetes mellitus. PROCEDURE Right below-knee amputation. SURGEON Jayme Wilkins MD ANESTHESIA General. ESTIMATED BLOOD LOSS 50 mL. PROCEDURE IN DETAIL The patient prepped and draped usual fashion. The right below-knee amputation incision is marked with indentation with silk and then incision was made anteriorly over the tibia, carried down laterally and posterior flap created through the skin with a 10 blade. Incision was deepened down to the tibia, dissected around it. Anterior tibial artery and veins are clamped, divided and ligated. The tibia and fibula are now exposed laterally and the periosteum is elevated to about 2 inches above the level of incision using periosteal elevator. The fibula and tibia transected and a posterior flap is created with amputation knife. The trifurcation is clamped, divided and ligated with 0 Vicryl stick ties and then small bleeders treated in the same way and with cautery. The area irrigated with copious amounts of saline. The tibia is now cut under an angle with oscillating saw and then rounded with a rasp. Posterior flap is flipped forward and then sewn in with interrupted 1 Vicryl deep layer and then fascia to fascia, superficial layer skin was closed with 3-0 Prolene interrupted stitches. Patient has very severe edema and waterlogged tissue of the right leg throughout the procedure fluid was freely leaking out of the tissue. I've approximated the skin but edges of the skin appears slightly ischemic and patient may in the future need debridement of the skin depending on how the vascular supply reestablishes itself.Dressing applied. The patient tolerated the procedure well. Tamera MENDOZA/ /5:44 PM /8:33 PM [facility]
[2016-07-12] VITALS (7 sets, daily range): BP systolic 100–152; BP diastolic 60–87; PULSE 100–118; RESP 18–20; TEMP 97.2–98.6; O2SAT 94–98
[2016-07-12] MEDS: MORPHINE SULFATE 4 MG/ML INJ IV PUSH PRN ×6 (00:12→21:37)
[2016-07-12] MEDS: oxyCODONE/ACETAMINOPHEN 5 MG/325 MG TAB PO PRN ×4 (02:23→19:40)
[2016-07-12] MEDS: VANCOMYCIN INJ 750 MG in SODIUM CHLOR 0.9% 250 ML INJ 250 ML IV SCH ×3 (02:23→16:47)
[2016-07-12] MEDS: PIPERACIL-TAZO 4.5 GM PREMIX 100 ML IV SCH ×4 (04:21→22:10)
[2016-07-12] MEDS: PANTOPRAZOLE SOD 40 MG DELAYED RELEASE TAB PO SCH (08:26)
[2016-07-12] MEDS: GABAPENTIN 100 MG CAP PO SCH ×3 (08:26→16:47)
[2016-07-12] MEDS: SODIUM CHLOR 0.9% 1000 ML INJ 1,000 ML IV SCH (08:26)
[2016-07-12] MEDS: SODIUM CHLORIDE 0.9% FLUSH 10 ML FLUSH IV FLUSH SCH ×2 (08:32→19:40)
[2016-07-12] MEDS ORDERED: PHARMACY ORDERED LAB ONE (09:45)
--- NOTE | 2016-07-12 12:29 | HHI.PR ---
Subjective Remarks patient seen with brother at bedside patient no complains of pain anxious- does not want to have any surgery done today- I assured him none today Objective Vitals Vital Signs Date Time Temp Pulse Resp B/P Pulse Ox O2 Delivery O2 Flow Rate FiO2 07/12/16 08:15 Room Air 07/12/16 08:00 97.2 112 18 100/60 98 07/12/16 04:00 97.9 110 18 135/74 94 07/12/16 04:00 Room Air 07/12/16 00:00 Room Air 07/12/16 00:00 98.0 106 18 127/74 98 07/11/16 20:53 115 07/11/16 20:00 Room Air 07/11/16 20:00 98.3 114 18 112/65 93 07/11/16 16:00 97.7 106 18 117/66 93 I/O 07/11/16 07/11/16 07/11/16 07/12/16 07/12/16 07/12/16 07:00 15:00 23:00 07:00 15:00 23:00 Intake Total 580 ml 360 ml 907 ml 1194 ml Output Total 550 ml 1725 ml 700 ml 1900 ml Balance 30 ml -1365 ml 207 ml -706 ml Intake Oral 580 ml 360 ml 240 ml 480 ml IV Total 667 ml 714 ml Output Urine Total 550 ml 1725 ml 700 ml 1900 ml # Bowel Movements 0 0 0 Result Diagram: 07/11/16 0750 07/12/16 0923 Objective Remarks awake and alert, oriented x 3 anicteric lungs no rales chest wall deep open wound- gauze dressing in place 8 cm x 7 cm x 2 cm regular rhythm abdomen soft, nontender right BKA- post op dressing in place LLE- good peripheral pulses Procedures 07/10- right BKA A/P Assessment and Plan 56 years old male S/P right BKA 07/10 for Acute Right foot gangrene with cellulitis underlying PVD- - cultures from 07/08- Pseudomonas/Enetrobacter -continue on IV antibiotics- Zosyn. - sensitive to Zosyn. enterobacter sensitivity pending continue on Vanco for now - Vascular surgery ff - percocet prn for pain -increase IV Morphine. Gabapentin 100 mg tid History of right chest melanoma S/P excision with deep wound 8 cm x 5 cm x 7 cm -OP ff up with Oncology - at one point under hospice- palliative care consulted - wound care team ff HYponatremia- asymptomatic. TSH normal DVT prophylaxiswith heparin drip. GI prophylaxis on pantoprazole. d/w brother at bedside- who says that patient is a recluse, History of Bipolar disorder. paperworks are in process for him to get POA or medical decision maker states that patient was ff by [facility] as OP referred to them by Dr. Aguayo- - foot is an acute issue and he said he was never informed or updated with this Adelina Tafoya MD Jul 12, 2016 12:29
[2016-07-12] MEDS ORDERED: PILL SPLITTER OTHER PRN (12:45)
--- NOTE | 2016-07-12 13:24 | PD.CAR.PN ---
CVT Progress Note Subjective/Hospital Course: Referral received Full consult BRUNO Juarez 07/11/16 Patient is status post right below-knee amputation. Incision is clean and dry Dressing intact We'll keep dressing until Wednesday Nothing to add to care 07/12/16 Dressing clean and dry We'll remove dressing Wednesday Patient is comfortable tolerating diet and doing well at this time Objective: Vital Signs Date Time Temp Pulse Resp B/P Pulse Ox O2 Delivery O2 Flow Rate FiO2 07/12/16 08:15 Room Air 07/12/16 08:00 97.2 112 18 100/60 98 07/12/16 04:00 97.9 110 18 135/74 94 07/12/16 04:00 Room Air 07/12/16 00:00 Room Air 07/12/16 00:00 98.0 106 18 127/74 98 07/11/16 20:53 115 07/11/16 20:00 Room Air 07/11/16 20:00 98.3 114 18 112/65 93 07/11/16 16:00 97.7 106 18 117/66 93 Labs: Laboratory Tests Test 07/12/16 07/12/16 09:23 09:30 Creatinine 0.57 MG/DL (0.60-1.30) Estimat Glomerular Filtration 147 ML/MIN Rate (>89) Vancomycin Level Trough 19.9 MCG/ML (5.0-10.0) Result Diagram: 07/11/16 0750 07/12/16 0923 Vanessa Tan MD Jul 12, 2016 13:24
[2016-07-12] MEDS ORDERED: LORazepam 0.5 MG TAB PO SCH (14:00)
[2016-07-12] MEDS: DOCUSATE SODIUM 100 MG CAP PO SCH (19:40)
[2016-07-12] MEDS: LORazepam 0.5 MG TAB PO PRN (21:37)
[2016-07-13] VITALS (7 sets, daily range): BP systolic 103–163; BP diastolic 58–80; PULSE 91–134; RESP 18–20; TEMP 98–99.1; O2SAT 92–96
[2016-07-13] MEDS: MORPHINE SULFATE 4 MG/ML INJ IV PUSH PRN ×5 (01:21→19:43)
[2016-07-13] MEDS: VANCOMYCIN INJ 750 MG in SODIUM CHLOR 0.9% 250 ML INJ 250 ML IV SCH ×3 (01:21→18:48)
[2016-07-13] MEDS: SODIUM CHLOR 0.9% 1000 ML INJ 1,000 ML IV SCH ×2 (01:25→22:22)
[2016-07-13] MEDS: oxyCODONE/ACETAMINOPHEN 5 MG/325 MG TAB PO PRN ×5 (03:51→22:18)
[2016-07-13] MEDS: PIPERACIL-TAZO 4.5 GM PREMIX 100 ML IV SCH ×4 (05:31→22:20)
[2016-07-13] MEDS: GABAPENTIN 100 MG CAP PO SCH ×3 (07:52→17:37)
[2016-07-13] MEDS: LORazepam 0.5 MG TAB PO PRN ×2 (07:52→15:38)
[2016-07-13] MEDS: PANTOPRAZOLE SOD 40 MG DELAYED RELEASE TAB PO SCH (07:52)
[2016-07-13] MEDS: DOCUSATE SODIUM 100 MG CAP PO SCH ×2 (07:52→19:41)
[2016-07-13] MEDS: SODIUM CHLORIDE 0.9% FLUSH 10 ML FLUSH IV FLUSH SCH ×2 (07:55→19:48)
--- NOTE | 2016-07-13 12:54 | HHI.PR ---
Subjective Remarks no complains Objective Vitals Vital Signs Date Time Temp Pulse Resp B/P Pulse Ox O2 Delivery O2 Flow Rate FiO2 07/13/16 10:23 Room Air 2.00 07/13/16 08:00 98.0 91 18 104/74 92 07/13/16 04:00 Room Air 07/13/16 04:00 98.2 104 18 117/69 96 07/13/16 00:00 Room Air 07/13/16 00:00 98.4 107 20 163/80 96 07/12/16 20:06 102 07/12/16 20:00 98.4 102 18 116/66 97 07/12/16 20:00 Room Air 07/12/16 16:00 98.6 116 20 152/87 96 I/O 07/12/16 07/12/16 07/12/16 07/13/16 07/13/16 07/13/16 07:00 15:00 23:00 07:00 15:00 23:00 Intake Total 1194 ml 480 ml 1398 ml 897 ml Output Total 1900 ml 1300 ml 700 ml 900 ml Balance -706 ml -820 ml 698 ml -3 ml Intake Oral 480 ml 480 ml 800 ml 240 ml IV Total 714 ml 598 ml 657 ml Output Urine Total 1900 ml 1300 ml 700 ml 900 ml # Bowel Movements 0 0 0 Result Diagram: 07/11/16 0750 07/12/16 0923 Objective Remarks awake and alert, oriented x 3, appears anxious anicteric lungs no rales chest wall deep open wound- gauze dressing in place regular rhythm, HR 108 abdomen soft, nontender right BKA- post op dressing in place LLE- good peripheral pulses Procedures 07/10- right BKA Urinary Catheter: Yes A/P Assessment and Plan 56 years old male S/P right BKA 07/10 for Acute Right foot gangrene with cellulitis underlying PVD- - cultures from 07/08- Pseudomonas/Enetrobacter -continue on IV antibiotics- Pseudomonas - sensitive to Zosyn. Enterobacter sensitivity pending continue on Vanco for now - Vascular surgery ff - percocet prn for pain -increase IV Morphine. Gabapentin 100 mg tid History of right chest melanoma S/P wide excisiion -OP ff up with Oncology - at one point under hospice- palliative care - wound care team ff HYponatremia- asymptomatic. TSH normal DVT prophylaxiswith heparin drip. GI prophylaxis on pantoprazole. / d/w brother at bedside- who says that patient is a recluse, History of Bipolar disorder. paperworks are in process for him to get POA or medical decision maker states that patient was ff by [facility] as OP referred to them by Dr. Aguayo- - foot is an acute issue and he said he was never informed or updated with this Adelina Tafoya MD Jul 13, 2016 12:54
--- NOTE | 2016-07-13 15:52 | PD.CAR.PN ---
CVT Progress Note Subjective/Hospital Course: Referral received Full consult BRUNO Juarez 07/11/16 Patient is status post right below-knee amputation. Incision is clean and dry Dressing intact We'll keep dressing until Wednesday Nothing to add to care 07/12/16 Dressing clean and dry We'll remove dressing Wednesday Patient is comfortable tolerating diet and doing well at this time 07/13/16 Incision is clean and dry There is an area about 4 mm in width at the very edge of the incision where skin seems to be slightly purplish and hypoperfused Patient does have poor skin perfusion and hopefully this is going to heal. Right now patient just needs daily dressings and by the end of week I'll reevaluated and if necessary debride a little of the skin Otherwise stump is healing nicely Objective: Vital Signs Date Time Temp Pulse Resp B/P Pulse Ox O2 Delivery O2 Flow Rate FiO2 07/13/16 12:00 98.1 120 18 103/58 93 07/13/16 12:00 Room Air 07/13/16 10:23 Room Air 2.00 07/13/16 08:15 95 07/13/16 08:00 2.00 07/13/16 08:00 98.0 91 18 104/74 92 07/13/16 08:00 134 07/13/16 04:00 Room Air 07/13/16 04:00 98.2 104 18 117/69 96 07/13/16 00:00 Room Air 07/13/16 00:00 98.4 107 20 163/80 96 07/12/16 20:06 102 07/12/16 20:00 98.4 102 18 116/66 97 07/12/16 20:00 Room Air 07/12/16 16:00 98.6 116 20 152/87 96 Result Diagram: 07/11/16 0750 07/12/16 0923 Vanessa Tan MD Jul 13, 2016 15:52
[2016-07-13 17:40] LABS: BASOPHIL % 0.4 % (0.0-2.0); EOSINOPHIL % 0.2 % (0.0-4.0); HEMATOCRIT 31.5 % (39.0-51.0); LYMPH % 9.5 % (9.0-44.0); LYMPHOCYTE # 1.3 TH/MM3 (1.0-4.8); MEAN CELL VOLUME 97.2 FL (80.0-100.0); MEAN CORPUSCULAR HEMOGLOBIN 30.7 PG (27.0-34.0); MEAN CORPUSCULAR HGB CONC 31.6 % (32.0-36.0); MONO % 7.7 % (0.0-8.0); NEUT % 82.2 % (16.0-70.0); PLATELET COUNT 292 TH/MM3 (150-450); RED BLOOD COUNT 3.25 MIL/MM3 (4.50-5.90); RED CELL DISTRIBUTION WIDTH 20.6 % (11.6-17.2); WHITE BLOOD COUNT 13.4 TH/MM3 (4.0-11.0)
[2016-07-13 17:46] LABS: HEMO FLAGS DIFF FINAL
[2016-07-13] MEDS ORDERED: SODIUM CHLORID 0.9% 500 ML INJ 500 ML IV ONE (21:45)
[2016-07-13 22:00] LABS: BICARBONATE 29.5 MEQ/L (21.0-32.0); POTASSIUM 3.5 MEQ/L (3.5-5.1)
[2016-07-14] VITALS: BP 128/65; PULSE 108; RESP 20; TEMP 98.7; O2SAT 99
[2016-07-14] MEDS: LORazepam 0.5 MG TAB PO PRN ×3 (00:14→20:23)
[2016-07-14] MEDS: MORPHINE SULFATE 4 MG/ML INJ IV PUSH PRN ×5 (00:15→20:24)
[2016-07-14] MEDS ORDERED: PHARMACY ORDERED LAB ONE (01:45)
[2016-07-14] MEDS: oxyCODONE/ACETAMINOPHEN 5 MG/325 MG TAB PO PRN ×5 (02:24→22:46)
[2016-07-14] MEDS: VANCOMYCIN INJ 750 MG in SODIUM CHLOR 0.9% 250 ML INJ 250 ML IV SCH ×3 (02:26→17:31)
[2016-07-14] MEDS: PIPERACIL-TAZO 4.5 GM PREMIX 100 ML IV SCH ×4 (04:28→22:47)
[2016-07-14 06:02] VITALS: BP 131/92; PULSE 103; RESP 20; TEMP 98.4; O2SAT 97
[2016-07-14 08:00] VITALS: BP 135/83; PULSE 121; RESP 18; TEMP 97.5; O2SAT 97
[2016-07-14] MEDS: GABAPENTIN 100 MG CAP PO SCH ×3 (08:00→17:37)
[2016-07-14] MEDS: DOCUSATE SODIUM 100 MG CAP PO SCH ×2 (08:00→20:22)
[2016-07-14] MEDS: PANTOPRAZOLE SOD 40 MG DELAYED RELEASE TAB PO SCH (08:00)
[2016-07-14] MEDS: SODIUM CHLOR 0.9% 1000 ML INJ 1,000 ML IV SCH (08:00)
[2016-07-14 08:06] LABS: HEMATOCRIT 26.1 % (39.0-51.0); MEAN CELL VOLUME 93.1 FL (80.0-100.0); MEAN CORPUSCULAR HEMOGLOBIN 31.8 PG (27.0-34.0); MEAN CORPUSCULAR HGB CONC 34.1 % (32.0-36.0); PLATELET COUNT 400 TH/MM3 (150-450); RED CELL DISTRIBUTION WIDTH 19.6 % (11.6-17.2); REVIEW FLAG FINAL; WHITE BLOOD COUNT 8.9 TH/MM3 (4.0-11.0)
[2016-07-14] MEDS: SODIUM CHLORIDE 0.9% FLUSH 10 ML FLUSH IV FLUSH SCH ×2 (09:00→20:23)
[2016-07-14 12:00] VITALS: BP 124/71; PULSE 116; RESP 18; TEMP 98.9; O2SAT 92
--- NOTE | 2016-07-14 12:05 | HHI.PR ---
Subjective Remarks patient up sitting good po , + BM formed, voiding spontaneously complains of pain- right stump Objective Vitals Vital Signs Date Time Temp Pulse Resp B/P Pulse Ox O2 Delivery O2 Flow Rate FiO2 07/14/16 10:39 Room Air 07/14/16 08:00 97.5 121 18 135/83 97 07/14/16 06:02 98.4 103 20 131/92 97 07/14/16 00:00 98.7 108 20 128/65 99 07/13/16 20:00 99.1 115 20 120/72 93 07/13/16 20:00 Room Air 07/13/16 20:00 117 07/13/16 16:00 98.8 117 18 117/67 94 07/13/16 16:00 Room Air 07/13/16 12:00 98.1 120 18 103/58 93 07/13/16 12:00 Room Air I/O 07/13/16 07/13/16 07/13/16 07/14/16 07/14/16 07/14/16 07:00 15:00 23:00 07:00 15:00 23:00 Intake Total 897 ml 707 ml 815 ml 1347 ml Output Total 900 ml 900 ml 500 ml 1175 ml Balance -3 ml -193 ml 315 ml 172 ml Intake Oral 240 ml 240 ml 120 ml IV Total 657 ml 707 ml 575 ml 1227 ml Output Urine Total 900 ml 900 ml 500 ml 1175 ml # Bowel Movements 0 0 0 Result Diagram: 07/14/16 0630 07/14/16 0630 Objective Remarks awake and alert, oriented x 3, appears anxious and guarded anicteric lungs no rales chest wall deep open wound- 8 cm x 7 cm x 2 cm - no necrotic tissue, lt yellowish drainage with surrounding erythema regular rhythm, tachycardic abdomen soft, nontender right BKA- post op dressing in place LLE- good peripheral pulses Procedures 07/10- right BKA A/P Assessment and Plan 56 years old male S/P right BKA 07/10 for Acute Right foot gangrene with cellulitis cultures from - Pseudomonas/Enterobacter Underlying Peripheral vascular disease -continue on IV antibiotics- Pseudomonas - sensitive to Zosyn. Enterobacter - on Vancomycin - Vascular surgery ff closely and may need further debridement - Percocet prn for pain -increase IV Morphine.to 4 mg IV prn, continue on Percocet 5 q 4 prn. ON duragesic patch - Gabapentin 100 mg tid - ID consult for final antibiotic recommendation Tachycardic- some anxiety component/pain uncontrolled History of Bipolar disorder- per brother recluse. - continue on Ativan 0,5 mg po q8 - Start low dose Lopressor 12.5 po bid - BPs 140s/90s - H and H in am -Increase Morphine. continue on Percocet, Gabapentin History of right chest melanoma S/P wide excision some surrounding cellulitis -OP ff up with Oncology - at one point under hospice- palliative care - d/w wound care team- don't do VAC over a malignant wound - area is too wide to close spontaneously - may eventually need flap for this - will consult Plastics surgery for evaluation in HYponatremia- asymptomatic. TSH normal DVT prophylaxiswith heparin drip. GI prophylaxis on pantoprazole. 07/12 d/w brother at bedside- who says that patient is a recluse, History of Bipolar disorder. paperworks are in process for him to get POA or medical decision maker states that patient was ff by [facility] as OP referred to them by Dr. Aguayo- - foot is an acute issue and he said he was never informed or updated with this Adelina Tafoya MD Jul 14, 2016 12:05
[2016-07-14] MEDS: METOPROLOL TARTRATE 25 MG TAB PO SCH ×2 (13:00→20:23)
--- NOTE | 2016-07-14 14:15 | HHI.HCPN ---
Met with Mr. Quinones for follow-up palliative care visit and attempt to complete health care surrogate designation, discuss living will. Mr. Quinones is currently lying in bed, awake and able to make needs known, somewhat agitated in conversation. He denies any questions or concerns. Verbalizes he is having some pain s/p surgery. Reports "I have pain medicine coming any time now". Informed TELLER COORDINATOR who will inform nurse. Inquired about health care surrogate designation, he states "I guess it would be my brother" (referring to Cristian whom he lives with) "or my [id number]". Offered to assist with paperwork, he declines. Offered to leave paperwork at bedside for his review, left my card as well should he or his brother have questions. Mr. Quinones reports he will have his brother review the papers but isn't sure he wants to complete them. Explained per [place] Statutes, should he become incapacitated, medical decision making would fall to the majority of his siblings since he is not and has no children. He verbalizes understanding. Gently discussed his goals of care. He states he plans to go to rehab then return to living with his brother. He declines any further conversation at this time. States he is ok with palliative care follow-up ongoing. Palliative care will continue to follow throughout hospitalization. Estrella Alexandra, HOT PACKER Jul 14, 2016 14:15
[2016-07-14 16:00] VITALS: BP 138/72; PULSE 108; RESP 18; TEMP 97.9; O2SAT 94
[2016-07-14] MEDS: fentaNYL 50 MCG/HR PATCH T-DERMAL SCH (16:43)
--- NOTE | 2016-07-14 16:55 | PD.ID.CON ---
History of Present Illness Service ID Consult Requested By Dr. Tafoya Reason for Consult Evaluation and Mment of possible Right BKA surgical site infection due to vascular compromise. Primary Care Physician Unknown Diagnoses: History of Present Illness Mr. Quinones is a 56 y/p CM with PMHx of melanoma of right chest (20 years ago) with new wound in this area, PVD, COPD, bipolar disorder and tobacco abuse. Patient reports he had resection of melanoma 20 years ago, then he recently picked at the scar and it got worse. He is a poor historian. He reports foot wound for the past 3-4 weeks. Notes indicate he was on hospice prior to admission, he does not know which hospice and tells me they were coming to help him bathe. Patient presented to [facility] on 07/08/16 with right foot wound and pain. He is admitted with gangrene right LE. Oncology consult was placed and at present patient does not want to pursue any treatment for melanoma. He refuses any chemotherapy or radiation therapy and actually would like to proceed with hospice at some point in the near future but he hasn't decided yet. Patient had a vascular workup and consult with vascular surgeon Dr. Juarez. A second opinion was obtained it was determined that the patient needed right below-knee amputation as the foot was not salvageable. Intraoperative notes reveal that patient may have some vascular compromise and there is a concern that the wound may not heal as well and may need further revision. Postoperatively patient has been fairly okay with no fevers minimal elevation of white count postoperatively as expected. Upon discussion with the nurse it appears that there is a concern that the surgical incision hasn't been feeling as well since surgery and is watching. Patient has been placed on Zosyn IV as well as vancomycin IV. A follow-up examination by Dr. Juarez pending at the present time to decide if he needs further revision of his amputation. Infectious disease is consulted for evaluation and management of possible right BKA surgical site infection. Past Family Social History Allergies: Coded Allergies: No Known Allergies (Unverified , 07/08/16) Past Medical History Melanoma history COPD Tobacco and alcohol abuse Bipolar disorder Past Surgical History Melanoma resection Reported Medications Reported Meds & Active Scripts Active Reported Fentanyl Patch 72 HR (Fentanyl) 50 Mcg/Hr Patch 50 Mcg T-DERMAL Q72H Remove old patch when new one placed. Lorazepam 0.5 Mg Tab 0.5 Mg PO Q6H PRN Gabapentin 100 Mg Cap 100 Mg PO TID Active Ordered Medications Current Medications Medications (Trade) Dose Ordered Sig/Carol Ann Route Start Time Stop Time Status Last Admin (NS Flush) 2 ml UNSCH PRN IV FLUSH 07/08/16 20:30 (NS Flush) 2 ml BID IV FLUSH 07/08/16 21:00 07/13/16 19:48 Naloxone HCl 0.4 mg 0.4 mg UNSCH PRN IV 07/08/16 20:30 Pharmacy Profile Note 0 ml @ 0 mls/hr UNSCH OTHER 07/08/16 22:45 Piperacillin Sod/ Tazobactam Sod 100 ml @ 200 mls/hr Q6H IV 07/08/16 23:00 07/14/16 16:40 (Heparin-D5W Inj) 250 ml @ 0 mls/hr TITRATE IV 07/08/16 22:45 Hold 07/09/16 23:45 Pantoprazole Sodium 40 mg 40 mg DAILY PO 07/09/16 09:00 07/14/16 08:00 (Vancomycin Inj/ NS 250 ml Inj) 250 ml @ 250 mls/hr Q8H IV 07/11/16 18:00 07/14/16 09:55 (Duragesic 50 Mcg Patch.72 Hr) 1 patch Q3D T-DERMAL 07/11/16 17:00 07/14/16 16:43 (Percocet 5-325 Mg) 1 tab Q4H PRN PO 07/11/16 16:15 07/14/16 11:51 (Neurontin) 100 mg TID PO 07/11/16 18:00 07/14/16 12:20 (Pill Splitter) 1 ea UNSCH PRN OTHER 07/12/16 12:45 (Ativan) 0.25 mg Q8HR PRN PO 07/12/16 14:00 07/14/16 09:54 (Colace) 100 mg BID PO 07/12/16 21:00 07/14/16 08:00 (Morphine Inj) 4 mg Q4HR PRN IV PUSH 07/14/16 12:00 07/14/16 14:19 (Lopressor) 12.5 mg Q8H PO 07/14/16 13:00 07/14/16 13:00 Family History Tobacco: Smokes 10-15 cigarettes per day for 40 years. Alcohol: Drank heavily until 4 years ago. Prescription med abuse: None. Illicits: Marijuana use until 4 years ago. Social History Not , No children. Lives with brother and sister in law. 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 Completed 10th grade. Physical Exam Vital Signs Vital Signs Date Time Temp Pulse Resp B/P Pulse Ox O2 Delivery O2 Flow Rate FiO2 07/14/16 16:00 97.9 108 18 138/72 94 07/14/16 12:00 Room Air 07/14/16 12:00 98.9 116 18 124/71 92 07/14/16 10:39 Room Air 07/14/16 08:00 97.5 121 18 135/83 97 07/14/16 08:00 Nasal Cannula 2.00 07/14/16 06:02 98.4 103 20 131/92 97 07/14/16 00:00 98.7 108 20 128/65 99 07/13/16 20:00 99.1 115 20 120/72 93 07/13/16 20:00 Room Air 07/13/16 20:00 117 Physical Exam GENERAL: This is a well-nourished, well-developed patient, in no apparent distress. SKIN: No rashes, ecchymoses or lesions. Cool and dry. HEAD: Atraumatic. Normocephalic. No temporal or scalp tenderness. EYES: Pupils equal round and reactive. Extraocular motions intact. No scleral icterus. No injection or drainage. ENT: Nose without bleeding, purulent drainage or septal hematoma. Throat without erythema, tonsillar hypertrophy or exudate. Uvula midline. Airway patent. NECK: Trachea midline. Supple, nontender, no meningeal signs. CARDIOVASCULAR: Regular rate and rhythm without murmurs, gallops, or rubs. On the right side of the chest wall he has a chronic fungating-appearing wound with an unhealthy looking base. Of note patient does not want anything that local wound Site. There is no surrounding erythema or induration noted. Just the base of the ulcer appears unhealthy with grayish white fibrinous exudate. RESPIRATORY: Clear to auscultation. Breath sounds equal bilaterally. No wheezes , rales, or rhonchi. GASTROINTESTINAL: Abdomen soft, non-tender, nondistended. MUSCULOSKELETAL: Right BKA surgical site with skin margins that have some areas of not good blood supply that appear pale. There is some post op ecchymosis noted as well. NEUROLOGICAL: Awake and alert. Grossly non focal Psych: cooperative, flat affect. IV line sites with no e.o infection. Laboratory Laboratory Tests Test 07/13/16 07/13/16 07/13/16 07/14/16 17:00 20:05 20:09 02:15 White Blood Count 13.4 Red Blood Count 3.25 Hemoglobin 10.0 Hematocrit 31.5 Mean Corpuscular Volume 97.2 Mean Corpuscular Hemoglobin 30.7 Mean Corpuscular Hemoglobin 31.6 Concent Red Cell Distribution Width 20.6 Platelet Count 292 Mean Platelet Volume 7.3 Neutrophils (%) (Auto) 82.2 Lymphocytes (%) (Auto) 9.5 Monocytes (%) (Auto) 7.7 Eosinophils (%) (Auto) 0.2 Basophils (%) (Auto) 0.4 Neutrophils # (Auto) 11.0 Lymphocytes # (Auto) 1.3 Monocytes # (Auto) 1.0 Eosinophils # (Auto) 0.0 Basophils # (Auto) 0.0 CBC Comment DIFF FINAL Differential Comment Blood Type A NEGATIVE Antibody Screen NEGATIVE Crossmatch Leukocyte-Reduced Red Blood Cells Blood Bank Comment Sodium Level 134 Potassium Level 3.5 Chloride Level 97 Carbon Dioxide Level 29.5 Anion Gap 8 Blood Urea Nitrogen 6 Creatinine 0.75 Estimat Glomerular Filtration 107 Rate Random Glucose 88 Calcium Level 8.6 Vancomycin Level Trough 18.0 Test 07/14/16 06:30 White Blood Count 8.9 Red Blood Count 2.80 Hemoglobin 8.9 Hematocrit 26.1 Mean Corpuscular Volume 93.1 Mean Corpuscular Hemoglobin 31.8 Mean Corpuscular Hemoglobin 34.1 Concent Red Cell Distribution Width 19.6 Platelet Count 400 Mean Platelet Volume 6.6 Creatinine 0.60 Estimat Glomerular Filtration 138 Rate Result Diagram: 07/14/1630 07/14/16 0630 Imaging None Assessment and Plan Assessment and Plan Possible right BKA surgical site infection/delayed healing due to vascular issues. Right chest wall fungating ulceration. Prior site of melanoma concerning for recurrence of melanoma with secondary infection. COPD Tobacco and alcohol abuse Bipolar disorder Recommendations: At the present time it appears that patient has more vascular issues which may be contributing to his delayed wound healing clinically the patient does not behave like he has an infection as his white count is normal, has no fevers and the surgical site has no signs of infection. Continue Zosyn IV Continue vancomycin IV target trough 10-15 for skin soft tissue infection Will discuss case with Dr. Larry Fox clinically. Adelaida Interiano MD Jul 14, 2016 16:55
[2016-07-14 20:00] VITALS: BP 115/64; PULSE 111; PULSE 94; RESP 20; TEMP 98.1; O2SAT 94
[2016-07-15] VITALS (8 sets, daily range): BP systolic 110–139; BP diastolic 59–69; PULSE 82–114; RESP 18; TEMP 98–98.8; O2SAT 91–97
[2016-07-15] MEDS: MORPHINE SULFATE 4 MG/ML INJ IV PUSH PRN ×6 (01:33→22:36)
[2016-07-15] MEDS: VANCOMYCIN INJ 750 MG in SODIUM CHLOR 0.9% 250 ML INJ 250 ML IV SCH ×2 (01:35→10:17)
[2016-07-15] MEDS: oxyCODONE/ACETAMINOPHEN 5 MG/325 MG TAB PO PRN ×4 (03:42→16:40)
[2016-07-15] MEDS: PIPERACIL-TAZO 4.5 GM PREMIX 100 ML IV SCH ×4 (05:33→22:53)
[2016-07-15] MEDS: METOPROLOL TARTRATE 25 MG TAB PO SCH ×3 (05:34→22:32)
[2016-07-15] MEDS: SODIUM CHLORIDE 0.9% FLUSH 10 ML FLUSH IV FLUSH PRN (05:37)
[2016-07-15] MEDS: DOCUSATE SODIUM 100 MG CAP PO SCH ×2 (08:09→21:00)
[2016-07-15] MEDS: PANTOPRAZOLE SOD 40 MG DELAYED RELEASE TAB PO SCH (08:10)
[2016-07-15] MEDS: GABAPENTIN 100 MG CAP PO SCH ×3 (08:10→16:39)
[2016-07-15] MEDS: SODIUM CHLORIDE 0.9% FLUSH 10 ML FLUSH IV FLUSH SCH ×2 (08:10→22:36)
[2016-07-15] MEDS: LORazepam 0.5 MG TAB PO PRN ×2 (08:11→18:42)
--- NOTE | 2016-07-15 16:04 | HHI.IDPN ---
Subjective Subjective Remarks Mr. Quinones is a 56 y/p CM with PMHx of melanoma of right chest (20 years ago) with new wound in this area, PVD, COPD, bipolar disorder and tobacco abuse. Patient reports he had resection of melanoma 20 years ago, then he recently picked at the scar and it got worse. He is a poor historian. He reports foot wound for the past 3-4 weeks. Notes indicate he was on hospice prior to admission, he does not know which hospice and tells me they were coming to help him bathe. Patient presented to [facility] on 07/08/16 with right foot wound and pain. He is admitted with gangrene right LE. Oncology consult was placed and at present patient does not want to pursue any treatment for melanoma. He refuses any chemotherapy or radiation therapy and actually would like to proceed with hospice at some point in the near future but he hasn't decided yet. Patient had a vascular workup and consult with vascular surgeon Dr. Juarez. A second opinion was obtained it was determined that the patient needed right below-knee amputation as the foot was not salvageable. Intraoperative notes reveal that patient may have some vascular compromise and there is a concern that the wound may not heal as well and may need further revision. Postoperatively patient has been fairly okay with no fevers minimal elevation of white count postoperatively as expected. Upon discussion with the nurse it appears that there is a concern that the surgical incision hasn't been feeling as well since surgery and is watching. Patient has been placed on Zosyn IV as well as vancomycin IV. A follow-up examination by Dr. Juarez pending at the present time to decide if he needs further revision of his amputation. Infectious disease is consulted for evaluation and management of possible right BKA surgical site infection. Overnight events reviewed. No fevers No rash No diarrhea Antibiotics Zosyn IV Vanco IV Lines Line sites with no e.o infection. Past Medical History reviewed Allergies: Coded Allergies: No Known Allergies (Unverified , 07/08/16) Objective . Vital Signs Date Time Temp Pulse Resp B/P Pulse Ox O2 Delivery O2 Flow Rate FiO2 07/15/16 14:54 16 07/15/16 13:49 16 07/15/16 12:00 98.0 95 18 117/64 97 07/15/16 08:10 Room Air 07/15/16 08:00 98.4 99 18 121/59 96 6/7/17 08:00 91 07/15/16 04:00 98.3 93 18 127/69 92 07/15/16 04:00 Room Air 07/15/16 00:00 98.3 91 18 126/67 93 07/15/16 00:00 Room Air 07/14/16 20:00 Room Air 07/14/16 20:00 94 07/14/16 20:00 98.1 111 20 115/64 94 07/14/16 07/14/16 07/15/16 15:00 23:00 07:00 Intake Total 720 ml 884 ml Output Total 925 ml 200 ml 900 ml Balance -205 ml -200 ml -16 ml Intake Oral 720 ml 0 ml IV Total 884 ml Output Urine Total 925 ml 200 ml 900 ml # Bowel Movements 2 1 2 . Laboratory Tests Test 07/13/16 07/14/16 17:00 06:30 White Blood Count 13.4 TH/MM3 8.9 TH/MM3 Red Blood Count 3.25 MIL/MM3 2.80 MIL/MM3 Hemoglobin 10.0 GM/DL 8.9 GM/DL Hematocrit 31.5 % 26.1 % Mean Corpuscular Volume 97.2 FL 93.1 FL Mean Corpuscular Hemoglobin 30.7 PG 31.8 PG Mean Corpuscular Hemoglobin 31.6 % 34.1 % Concent Red Cell Distribution Width 20.6 % 19.6 % Platelet Count 292 TH/MM3 400 TH/MM3 Mean Platelet Volume 7.3 FL 6.6 FL Neutrophils (%) (Auto) 82.2 % Lymphocytes (%) (Auto) 9.5 % Monocytes (%) (Auto) 7.7 % Eosinophils (%) (Auto) 0.2 % Basophils (%) (Auto) 0.4 % Neutrophils # (Auto) 11.0 TH/MM3 Lymphocytes # (Auto) 1.3 TH/MM3 Monocytes # (Auto) 1.0 TH/MM3 Eosinophils # (Auto) 0.0 TH/MM3 Basophils # (Auto) 0.0 TH/MM3 CBC Comment DIFF FINAL Differential Comment Laboratory Tests Test 07/13/16 07/14/16 20:09 06:30 Sodium Level 134 MEQ/L Potassium Level 3.5 MEQ/L Chloride Level 97 MEQ/L Carbon Dioxide Level 29.5 MEQ/L Anion Gap 8 MEQ/L Blood Urea Nitrogen 6 MG/DL Creatinine 0.75 MG/DL 0.60 MG/DL Estimat Glomerular Filtration 107 ML/MIN 138 ML/MIN Rate Random Glucose 88 MG/DL Calcium Level 8.6 MG/DL Physical Exam GENERAL: This is a well-nourished, well-developed patient, in no apparent distress. SKIN: No rashes, ecchymoses or lesions. Cool and dry. HEAD: Atraumatic. Normocephalic. No temporal or scalp tenderness. EYES: Pupils equal round and reactive. Extraocular motions intact. No scleral icterus. No injection or drainage. ENT: Nose without bleeding, purulent drainage or septal hematoma. Throat without erythema, tonsillar hypertrophy or exudate. Uvula midline. Airway patent. NECK: Trachea midline. Supple, nontender, no meningeal signs. CARDIOVASCULAR: Regular rate and rhythm without murmurs, gallops, or rubs. On the right side of the chest wall he has a chronic fungating-appearing wound with an unhealthy looking base. Of note patient does not want anything that local wound Site. There is no surrounding erythema or induration noted. Just the base of the ulcer appears unhealthy with grayish white fibrinous exudate. RESPIRATORY: Clear to auscultation. Breath sounds equal bilaterally. No wheezes , rales, or rhonchi. GASTROINTESTINAL: Abdomen soft, non-tender, nondistended. MUSCULOSKELETAL: Right BKA surgical site with skin margins that have some areas of not good blood supply that appear pale. There is some post op ecchymosis noted as well. NEUROLOGICAL: Awake and alert. Grossly non focal Psych: cooperative, flat affect. IV line sites with no e.o infection. Assessment & Plan Remarks Possible right BKA surgical site infection/delayed healing due to vascular issues. Right chest wall fungating ulceration. Prior site of melanoma concerning for recurrence of melanoma with secondary infection. COPD Tobacco and alcohol abuse Bipolar disorder Recommendations: At the present time it appears that patient has more vascular issues which may be contributing to his delayed wound healing clinically the patient does not behave like he has an infection as his white count is normal, has no fevers and the surgical site has no signs of infection. Continue Zosyn IV Continue vancomycin IV target trough 10-15 for skin soft tissue infection Case with Dr. Juarez: He will likely need revision of stump skin suture line. He will reasses in am. If intra op no infection may consider deescalation or stopping antibiotics post procedure. Follow clinically. I will be OOT from 07/16/16 to 07/19/16. to cover for me Th and Wed and on weekend. Adelaida Interiano MD Jul 15, 2016 16:04
--- NOTE | 2016-07-15 18:19 | PD.CONS ---
History of Present Illness Consult Requested By Dr. Tafoya Reason for Consult chest wound Primary Care Physician Unknown Diagnoses: History of Present Illness Mr. Quinones is a 56 y/p CM with PMHx of melanoma of right chest (20 years ago) with new wound in this area, PVD, COPD, bipolar disorder and tobacco abuse. Patient reports he had resection of melanoma 20 years ago, then he recently picked at the scar and it got worse. He states that he had chemotherapy and radiation. He is a poor historian. He was on hospice prior to admission. Patient presented to [facility] on 07/08/16 with right foot wound and pain. He is admitted with gangrene right LE. Oncology consult was placed and at present patient does not want to pursue any treatment for melanoma. He refuses any chemotherapy or radiation therapy and actually would like to proceed with hospice at some point in the near future but he hasn't decided yet. Patient underwent right below the knee amputation last week. I have been consulted to evaluate his right chest wound. Review of Systems Integumentary: COMPLAINS OF: Abnormal pigmentation, Nail changes, Pruritus, Rash Past Family Social History Allergies: Coded Allergies: No Known Allergies (Unverified , 07/08/16) Past Medical History bipolar, PVOD, melanoma Past Surgical History Right BKA, right chest melanoma resection Active Ordered Medications Current Medications Medications (Trade) Dose Ordered Sig/Carol Ann Route Start Time Stop Time Status Last Admin (NS Flush) 2 ml UNSCH PRN IV FLUSH 07/08/16 20:30 07/15/16 05:37 (NS Flush) 2 ml BID IV FLUSH 07/08/16 21:00 07/15/16 08:10 Naloxone HCl 0.4 mg 0.4 mg UNSCH PRN IV 07/08/16 20:30 Pharmacy Profile Note 0 ml @ 0 mls/hr UNSCH OTHER 07/08/16 22:45 Piperacillin Sod/ Tazobactam Sod 100 ml @ 200 mls/hr Q6H IV 07/08/16 23:00 07/15/16 16:39 (Heparin-D5W Inj) 250 ml @ 0 mls/hr TITRATE IV 07/08/16 22:45 Hold 07/09/16 23:45 (Protonix) 40 mg DAILY PO 07/09/16 09:00 07/15/16 08:10 (Duragesic 50 Mcg Patch.72 Hr) 1 patch Q3D T-DERMAL 07/11/16 17:00 07/14/16 16:43 (Percocet 5-325 Mg) 1 tab Q4H PRN PO 07/11/16 16:15 07/15/16 16:40 (Neurontin) 100 mg TID PO 07/11/16 18:00 07/15/16 16:39 (Pill Splitter) 1 ea UNSCH PRN OTHER 07/12/16 12:45 (Ativan) 0.25 mg Q8HR PRN PO 07/12/16 14:00 07/15/16 08:11 (Colace) 100 mg BID PO 07/12/16 21:00 07/14/16 08:00 (Morphine Inj) 4 mg Q4HR PRN IV PUSH 07/14/16 12:00 07/15/16 14:38 Metoprolol Tartrate 12.5 mg 12.5 mg Q8H PO 07/14/16 13:00 07/15/16 12:43 (Vancomycin Inj/ NS 250 ml Inj) 250 ml @ 250 mls/hr Q12H IV 07/15/16 22:00 Miscellaneous Information SPECIFIC LAB TO BE DRAWN:VANCOMYCIN TROUGH DATE TO... ONCE ONCE .XX 07/17/16 09:45 07/17/16 09:46 Social History former smoker Physical Exam Vital Signs Vital Signs Date Time Temp Pulse Resp B/P Pulse Ox O2 Delivery O2 Flow Rate FiO2 07/15/16 17:45 16 07/15/16 16:00 98.5 95 18 113/69 94 07/15/16 14:54 16 07/15/16 12:00 98.0 95 18 117/64 97 07/15/16 08:10 Room Air 07/15/16 08:00 98.4 99 18 121/59 96 07/15/16 08:00 91 07/15/16 04:00 98.3 93 18 127/69 92 07/15/16 04:00 Room Air 07/15/16 00:00 98.3 91 18 126/67 93 07/15/16 00:00 Room Air 07/14/16 20:00 Room Air 07/14/16 20:00 94 07/14/16 20:00 98.1 111 20 115/64 94 Physical Exam GENERAL: Poorly nourished SKIN: Open right chest wound with exposed ribs and fibrinous exudate HEAD: Atraumatic. Normocephalic. No temporal or scalp tenderness. EYES: Pupils equal round and reactive. Extraocular motions intact. No scleral icterus. No injection or drainage. ENT: Nose without bleeding, purulent drainage or septal hematoma. Throat without erythema, tonsillar hypertrophy or exudate. Uvula midline. Airway patent. NECK: Trachea midline. No JVD or lymphadenopathy. Supple, nontender, no meningeal signs. CARDIOVASCULAR: Regular rate and rhythm without murmurs, gallops, or rubs. RESPIRATORY: Clear to auscultation. Breath sounds equal bilaterally. No wheezes , rales, or rhonchi. GASTROINTESTINAL: Abdomen soft, non-tender, nondistended. No hepato-splenomegaly , or palpable masses. No guarding. MUSCULOSKELETAL: Fresh right BKA NEUROLOGICAL: Awake and alert. Cranial nerves II through XII intact. Motor and sensory grossly within normal limits. Five out of 5 muscle strength in all muscle groups. Normal speech. Result Diagram: 07/14/1662907/14/1630 Assessment and Plan Assessment and Plan Patient has an open right chest wound with exposed rib. He certainly needs soft tissue coverage. If he is on hospice, I will need to discuss the other non surgical options. This wound will not heal without a flap. Flap options include latissimus dorsi versus rectus flap. Both options are fairly morbid given his poor nutritional status and current condition. Estrella Balderas MD Jul 15, 2016 6:19 pm
--- NOTE | 2016-07-15 18:29 | HHI.PR ---
Subjective Remarks no complainst more interactive and spoke more today Objective Vitals Vital Signs Date Time Temp Pulse Resp B/P Pulse Ox O2 Delivery O2 Flow Rate FiO2 07/15/16 17:45 16 07/15/16 16:00 98.5 95 18 113/69 94 07/15/16 14:54 16 07/15/16 12:00 98.0 95 18 117/64 97 07/15/16 08:10 Room Air 07/15/16 08:00 98.4 99 18 121/59 96 07/15/16 08:00 91 07/15/16 04:00 98.3 93 18 127/69 92 07/15/16 04:00 Room Air 07/15/16 00:00 98.3 91 18 126/67 93 07/15/16 00:00 Room Air 07/14/16 20:00 Room Air 07/14/16 20:00 94 07/14/16 20:00 98.1 111 20 115/64 94 I/O 07/14/16 07/14/16 07/14/16 07/15/16 07/15/16 07/15/16 07:00 15:00 23:00 07:00 15:00 23:00 Intake Total 1347 ml 720 ml 884 ml 383 ml Output Total 1175 ml 925 ml 200 ml 900 ml Balance 172 ml -205 ml -200 ml -16 ml 383 ml Intake Oral 120 ml 720 ml 0 ml IV Total 1227 ml 884 ml 383 ml Output Urine Total 1175 ml 925 ml 200 ml 900 ml # Bowel Movements 0 2 1 2 Result Diagram: 07/14/16 0630 07/14/16 0630 Objective Remarks awake and alert, oriented x 3, appears anxious and guarded anicteric lungs no rales chest wall deep open wound- 8 cm x 7 cm x 2 cm - no necrotic tissue, lt yellowish drainage with surrounding erythema regular rhythm, tachycardic abdomen soft, nontender right BKA- post op dressing in place LLE- good peripheral pulses Procedures 07/10- right BKA A/P Assessment and Plan 56 years old male S/P right BKA 07/10 for Acute Right foot gangrene with cellulitis cultures from - Pseudomonas/Enterobacter Underlying Peripheral vascular disease -continue on IV antibiotics- Pseudomonas - sensitive to Zosyn. Enterobacter - on Vancomycin - Vascular surgery ff closely and may need further debridement - Percocet prn for pain -increase IV Morphine.to 4 mg IV prn, continue on Percocet 5 q 4 prn. ON duragesic patch - Gabapentin 100 mg tid - appreciate ID seeing patient Tachycardic- some anxiety component/pain uncontrolled History of Bipolar disorder- per brother recluse. - continue on Ativan 0,5 mg po q8 - Start low dose Lopressor 12.5 po bid - BPs 140s/90s - H and H in am -Increase Morphine. continue on Percocet, Gabapentin History of right chest melanoma S/P wide excision some surrounding cellulitis -OP ff up with Oncology - at one point under hospice- palliative care - d/w wound care team- ? don't do VAC over a malignant wound - area is too wide to close spontaneously - may eventually need flap for this - will consult Plastics surgery for evaluation ? if VAC would help HYponatremia- asymptomatic. TSH normal DVT prophylaxiswith heparin drip. GI prophylaxis on pantoprazole. 07/12 d/w brother at bedside- who says that patient is a recluse, History of Bipolar disorder. paperworks are in process for him to get POA or medical decision maker states that patient was ff by [facility] as OP referred to them by Dr. Aguayo- - foot is an acute issue and he said he was never informed or updated with this Adelina Tafoya MD Jul 15, 2016 18:29
[2016-07-15] MEDS: VANCOMYCIN 1,000 MG/NS 250 ML IV SCH ×2 (22:53)
[2016-07-16] VITALS (7 sets, daily range): BP systolic 112–142; BP diastolic 65–74; PULSE 81–111; RESP 18; TEMP 98–98.3; O2SAT 91–97
[2016-07-16] MEDS: oxyCODONE/ACETAMINOPHEN 5 MG/325 MG TAB PO PRN ×6 (00:30→23:28)
[2016-07-16] MEDS: MORPHINE SULFATE 4 MG/ML INJ IV PUSH PRN ×5 (03:01→21:02)
[2016-07-16] MEDS: PIPERACIL-TAZO 4.5 GM PREMIX 100 ML IV SCH ×4 (05:23→23:27)
[2016-07-16] MEDS: METOPROLOL TARTRATE 25 MG TAB PO SCH ×3 (05:23→21:08)
[2016-07-16] MEDS: SODIUM CHLORIDE 0.9% FLUSH 10 ML FLUSH IV FLUSH PRN (07:49)
[2016-07-16] MEDS: GABAPENTIN 100 MG CAP PO SCH ×3 (09:35→16:42)
[2016-07-16] MEDS: PANTOPRAZOLE SOD 40 MG DELAYED RELEASE TAB PO SCH (09:35)
[2016-07-16] MEDS: LORazepam 0.5 MG TAB PO PRN ×2 (09:35→23:28)
[2016-07-16] MEDS: DOCUSATE SODIUM 100 MG CAP PO SCH ×2 (09:35→21:00)
[2016-07-16] MEDS: SODIUM CHLORIDE 0.9% FLUSH 10 ML FLUSH IV FLUSH SCH ×2 (09:36→21:02)
[2016-07-16] MEDS: VANCOMYCIN 1,000 MG/NS 250 ML IV SCH ×4 (09:37→21:05)
--- NOTE | 2016-07-16 09:41 | PD.CAR.PN ---
CVT Progress Note Subjective/Hospital Course: Referral received Full consult BRUNO Juarez 07/11/16 Patient is status post right below-knee amputation. Incision is clean and dry Dressing intact We'll keep dressing until Wednesday Nothing to add to care 07/12/16 Dressing clean and dry We'll remove dressing Wednesday Patient is comfortable tolerating diet and doing well at this time 07/13/16 Incision is clean and dry There is an area about 4 mm in width at the very edge of the incision where skin seems to be slightly purplish and hypoperfused Patient does have poor skin perfusion and hopefully this is going to heal. Right now patient just needs daily dressings and by the end of week I'll reevaluated and if necessary debride a little of the skin Otherwise stump is healing nicely 07/16/16 Some ischemic skin edge alongside lateral aspects of closure line, will allow to demarcate first and then gently debride this in the OR as necessary. Continue dressings and care Objective: Vital Signs Date Time Temp Pulse Resp B/P Pulse Ox O2 Delivery O2 Flow Rate FiO2 07/16/16 05:22 98.1 102 18 112/70 92 07/15/16 23:52 98.4 114 18 110/67 91 07/15/16 21:02 98.8 104 18 139/67 93 07/15/16 20:24 82 07/15/16 20:00 Room Air 07/15/16 18:48 16 07/15/16 17:45 16 07/15/16 16:00 98.5 95 18 113/69 94 07/15/16 12:00 98.0 95 18 117/64 97 Labs: Laboratory Tests Test 07/16/16 07:20 Creatinine 0.67 MG/DL (0.60-1.30) Estimat Glomerular Filtration 122 ML/MIN Rate (>89) Result Diagram: 07/14/16 0630 07/16/16 0720 Vanessa Tan MD Jul 16, 2016 09:41
--- NOTE | 2016-07-16 12:16 | HHI.HCPN ---
Reason for visit a. To assist with evaluation and management of symptoms including: pain, constipation, anxiety b. To assist medical decision maker(s) with: better understanding of current medical conditions; weighing benefits/burdens of medical treatment options; making medical treatment decisions. . Subjective/Interval History Mr. Quinones is a 56 year old male admitted to [facility] on 07/08/16 with right foot cellulitis and gangrene. Mr. Quinones has past medical history of melanoma of right chest (20 years ago) with occurrence, PVD, COPD, bipolar disorder and tobacco abuse. On admission, the patient indicated he did not wish to pursue aggressive interventions for his malignant melanoma, refusing radiation/chemotherapy. However, he wanted aggressive management for his right lower extremity. The patient subsequently underwent a right below the knee amputation on 07/10/[address] Tan. Oncology was consulted, and the patient again declined treatment for his malignant melanoma. Patient refusing any chemotherapy or radiation therapy and would like to proceed with hospice at some point in the future. Notes indicate the patient was on prior to admission. The patient's brother states they were receiving hospice services with [facility], but they were unhappy with the care and do not wish to be readmitted on their services. Infectious disease continues to follow; patient is high risk for postoperative complications secondary to his vascular compromise. Patient remains on IV Zosyn as well as IV vancomycin. Vascular surgery is closely monitoring the patient may need further debridement. Plastic surgery is also involved, consulted for evaluation and recommendations of the patient's right chest wound. Per Dr. Balderas's notes, "He certainly needs soft tissue coverage. If he is on hospice, I will need to discuss the other non surgical options. This wound will not heal without a flap. Flap options include latissimus dorsi versus rectus flap. Both options are fairly morbid given his poor nutritional status and current condition". On exam today, the patient is sitting on the side of the bed. He reports ongoing intermittent pain in his right lower extremity at incision site and phantom pain where his right foot was prior to amputation. Pain is described as "burning" and can be severe at times; the patient states his pain is worse when he is lying still with his lower extremities elevated. Patient is on a Duragesic patch and receives gabapentin 100 mg TID. Percocet (5-325mg) and IV morphine are available every 4 hours PRN for breakthrough pain. 24 hour dosing requirements: Percocet 5-325mg x 5 and Morphine 4mg IV x 5. Today, the patient states he would like to know what treatment options are recommended for his left chest wall wound, wound is deep and open8 cm x 7 cm x 2 cm. Right lower extremity is pick and warm, dressing dry and intact. Left lower extremity with 2+ - 3+ edema. . Family/friend interactions HCS surrogate form completed at bedside, identifying the patient's brother ( Dinh Quinones) as the health care surrogate decision maker. Also present Palliative care HOUSE REPAIRER, Estrella Carter. Spoke with patient's brother at length regarding patient's current clinical condition, treatment options and prognosis. The patient's brother states the patient has a history of noncompliance and refusal of recommended treatment. The patient was on [facility] prior to admission and had moved into his brother/JEANINE home. Dinh ( brother) states while it is likely the patient will again opt for hospice services; they were not happy with the previous hospice organization and would not want to use them again. Dinh states the patient will need placement because he and his are no longer able to meet the patient's physical/ medical needs. . Advance Directives Living Will: Never completed Health Care Surrogate: Never completed Durable Power of Flotation Tender Helper: Never completed Advance Directive Specifics Date completed: 07/16/2016 . Health Care Surrogate(s): Patient's brother, Dinh Quinones, is designated as the healthcare surrogate. . Documented care wishes: Living will forms at patient's bedside. . Objective Vital Signs Date Time Temp Pulse Resp B/P Pulse Ox O2 Delivery O2 Flow Rate FiO2 07/16/16 05:22 98.1 102 18 112/70 92 07/15/16 23:52 98.4 114 18 110/67 91 07/15/16 21:02 98.8 104 18 139/67 93 07/15/16 20:24 82 07/15/16 20:00 Room Air 07/15/16 18:48 16 07/15/16 17:45 16 07/15/16 16:00 98.5 95 18 113/69 94 07/15/16 12:00 98.0 95 18 117/64 97 Intake & Output 07/16/16 07/16/16 07:00 19:00 Intake Total 655 ml Output Total 980 ml Balance -325 ml Intake Oral 240 ml IV Total 415 ml Output Urine Total 980 ml # Bowel Movements 1 . Physical Exam CONSTITUTIONAL/GENERAL: This is an thin, chronically ill appearing patient in no apparent distress TUBES/LINES/DRAINS: PIV left AC, right forearm. SKIN: Right BKA; upper leg pink and warm to touch. LLE with 2+ to 3+ edema. Dressing present chest wall, wound 8cm x 7 cm x [address]. Skin temperature appropriate. Not diaphoretic. HEAD: Atraumatic. Normocephalic. EYES: Pupils equal and round and reactive. Extraocular motions intact. No scleral icterus. No injection or drainage. Fundi not examined. ENT: Hearing grossly normal. Nose without bleeding or purulent drainage. Throat without visible erythema, exudates, masses, or lesions. NECK: Trachea midline. CARDIOVASCULAR: Tachycardic. No JVD. RESPIRATORY/CHEST: Respirations unlabored. Oxygen saturation the low 90s on room air. Diminished breath sounds bilaterally. GASTROINTESTINAL: Abdomen soft, non-tender, nondistended. GENITOURINARY: Without palpable bladder distension. Voids in urinal. MUSCULOSKELETAL: Right bilateral lower extremity status post BKA; LLE with 2+ to 3+ edema. NEUROLOGICAL: Awake and alert. Generalized weakness. Cognitively sharp. Moves all extremities. PSYCHIATRIC: Verbalizes annoyance with questioning exam of multiple providers. . Diagnostic Tests Laboratory Laboratory Tests Test 07/13/16 07/13/16 07/13/16 07/14/16 17:00 20:05 20:09 02:15 White Blood Count 13.4 TH/MM3 (4.0-11.0) Red Blood Count 3.25 MIL/MM3 (4.50-5.90) Hemoglobin 10.0 GM/DL (13.0-17.0) Hematocrit 31.5 % (39.0-51.0) Mean Corpuscular Volume 97.2 FL (80.0-100.0) Mean Corpuscular Hemoglobin 30.7 PG (27.0-34.0) Mean Corpuscular Hemoglobin 31.6 % Concent (32.0-36.0) Red Cell Distribution Width 20.6 % (11.6-17.2) Platelet Count 292 TH/MM3 (150-450) Mean Platelet Volume 7.3 FL (7.0-11.0) Neutrophils (%) (Auto) 82.2 % (16.0-70.0) Lymphocytes (%) (Auto) 9.5 % (9.0-44.0) Monocytes (%) (Auto) 7.7 % (0.0-8.0) Eosinophils (%) (Auto) 0.2 % (0.0-4.0) Basophils (%) (Auto) 0.4 % (0.0-2.0) Neutrophils # (Auto) 11.0 TH/MM3 (1.8-7.7) Lymphocytes # (Auto) 1.3 TH/MM3 (1.0-4.8) Monocytes # (Auto) 1.0 TH/MM3 (0-0.9) Eosinophils # (Auto) 0.0 TH/MM3 (0-0.4) Basophils # (Auto) 0.0 TH/MM3 (0-0.2) CBC Comment DIFF FINAL Differential Comment Blood Type A NEGATIVE Antibody Screen NEGATIVE Crossmatch Leukocyte-Reduced Red Blood Cells Blood Bank Comment Sodium Level 134 MEQ/L (136-145) Potassium Level 3.5 MEQ/L (3.5-5.1) Chloride Level 97 MEQ/L (98-107) Carbon Dioxide Level 29.5 MEQ/L (21.0-32.0) Anion Gap 8 MEQ/L (5-15) Blood Urea Nitrogen 6 MG/DL (7-18) Creatinine 0.75 MG/DL (0.60-1.30) Estimat Glomerular Filtration 107 ML/MIN Rate (>89) Random Glucose 88 MG/DL (74-106) Calcium Level 8.6 MG/DL (8.5-10.1) Vancomycin Level Trough 18.0 MCG/ML (5.0-10.0) Test 07/14/16 07/16/16 06:30 07:20 White Blood Count 8.9 TH/MM3 (4.0-11.0) Red Blood Count 2.80 MIL/MM3 (4.50-5.90) Hemoglobin 8.9 GM/DL (13.0-17.0) Hematocrit 26.1 % (39.0-51.0) Mean Corpuscular Volume 93.1 FL (80.0-100.0) Mean Corpuscular Hemoglobin 31.8 PG (27.0-34.0) Mean Corpuscular Hemoglobin 34.1 % Concent (32.0-36.0) Red Cell Distribution Width 19.6 % (11.6-17.2) Platelet Count 400 TH/MM3 (150-450) Mean Platelet Volume 6.6 FL (7.0-11.0) Creatinine 0.60 MG/DL 0.67 MG/DL (0.60-1.30) (0.60-1.30) Estimat Glomerular Filtration 138 ML/MIN 122 ML/MIN Rate (>89) (>89) . Result Diagram: 07/14/16 0630 07/16/16 0720 Assessment and Plan Disease Oriented Problem List: (1) Cellulitis of foot (2) History of melanoma Comment: History melanoma s/p resection 20 years ago, now with recurrence Wide open chest wound 8cm x 7cm x 2cm Oncology consulted; patient does not wish to pursue aggressive intervention Patient was on [facility] prior to admission; will likely opt for hospice in the future but does not want readmission with previous hospice organization Plastic surgery consulted for evaluation/recommendation (3) COPD (chronic obstructive pulmonary disease) (4) Bipolar disorder (5) Gangrene of right foot Comment: Status post right right BKA on 07/11/16 Cultures 07/08/16 with Pseudomonas/Enterobacter Underlying peripheral vascular disease Infectious disease following-IV Zosyn IV vancomycin Symptom Scale: (1) Pain 0-10 Scale: 10 Comment: Intermittent, burning pain in right foot, intermittent pain in chest wound site, temporary relief with medication . (2) Anxiety 0-10 Scale: Unable to quantify Comment: Indicates intermittent anxiety, and long history of anxiety. PRN lorazepam 0.25mg PO available q 8 hours; patient using regularly. (3) Constipation Comment: High risk for constipation secondary to opioids. Currently on Colace 100mg PO two times daily ATC. Will continue to monitor. LBM 07/16/2016 Pertinent Non-Medical Issues Psychosocial: Single. No children. Lives with brother and sister in law. Spiritual: Not an important part of his life. Legal: Health care surrogate form completed 07/16/2016; patient's brother (Dinh Quinones) is designated as the health surrogate decision maker. Ethical issues impacting care: No known concerns at this time. . Important Contacts * Dinh Quinones, brother: [phone] or [phone] * Princess Quinones, [id number]: [phone] . Prognosis Mr. Quinones is a frail, chronically ill appearing 56-year-old gentleman with gangrene right lower extremity, overall prognosis appears poor. Patient was on hospice services prior to admission, appears hospice appropriate of goals are comfort oriented. . Code Status: Full Code Plan * FULL CODE. * Decision-making: Health care surrogate form completed 07/16/2016; patient's brother (Dinh Quinones) is designated as the health surrogate decision maker. * Goals: Per notes patient was on hospice prior to admission. He will opt to return to hospice upon discharge, awaiting recommendations from plastic surgery for right chest wall wound. * Symptom management-pain: likely secondary to severe peripheral vascular disease/postoperative pain/wound, metastatic melanoma, and in pain. Patient is on a Duragesic patch and receives gabapentin 100 mg TID. Percocet (5-325mg) and IV morphine are available every 4 hours PRN for breakthrough pain. 24 hour dosing requirements: Percocet 5-325mg x 5 and Morphine 4mg IV x 5. Starting a long-acting pain medication may be appropriate at some point. * Symptom managementconstipation: High risk for constipation secondary to opioids. Currently on Colace 100mg PO two times daily ATC. Will continue to monitor. LBM 07/16/2016 * Spoke with patient's brother at length regarding patient's current clinical condition, treatment options and prognosis. The patient's brother states the patient has a history of noncompliance and refusal of recommended treatment. [facility] into his brother/[facility]AN[facility] home. Dinh (brother) states while it is likely the patient will again opt for hospice services; they were not happy with the previous hospice organization and would not want to use them again. Dinh states the patient will need placement because he and his are no longer able to meet the patient's physical/medical needs. * Palliative care will continue to follow throughout hospital course to assist with symptom management and further clarification of treatment goals. Attestation To help prompt me to consider important information that might be impacting today's encounter and assessment, information from prior notes written by myself or my colleagues may have been "brought forward" into today's note. My signature on this note, however, is an attestation that I personally performed the exam, history, and/or decision-making noted today, and, unless otherwise indicated, the interactions with patient, family, and staff as well as the review of records all occurred today. I also attest that the listed assessment and stated plan reflect my best clinical judgment today based on the combination of historical information, prior notes, and today's exam/ interactions. When time spent is documented, it refers only to time spent today by the signer, or if indicated, combined time spent today by collaborating physician/nurse practitioner. . Tanika Olson Jul 16, 2016 12:16
--- NOTE | 2016-07-16 17:40 | HHI.PR ---
Subjective Remarks Patient states having some pain but rubbing his leg makes it feel better. He denies any chest pain, shortness of breath, nausea or vomiting. Objective Vitals Vital Signs Date Time Temp Pulse Resp B/P Pulse Ox O2 Delivery O2 Flow Rate FiO2 07/16/16 12:00 98.3 94 18 117/68 94 07/16/16 08:00 98.2 81 18 112/65 93 07/16/16 07:15 Room Air 07/16/16 05:22 98.1 102 18 112/70 92 07/15/16 23:52 98.4 114 18 110/67 91 07/15/16 21:02 98.8 104 18 139/67 93 07/15/16 20:24 82 07/15/16 20:00 Room Air 07/15/16 18:48 16 07/15/16 17:45 16 I/O 07/15/16 07/15/16 07/15/16 07/16/16 07/16/16 07/16/16 07:00 15:00 23:00 07:00 15:00 23:00 Intake Total 884 ml 383 ml 240 ml 415 ml 474 ml Output Total 900 ml 500 ml 480 ml Balance -16 ml 383 ml -260 ml -65 ml 474 ml Intake Oral 0 ml 240 ml 0 ml IV Total 884 ml 383 ml 415 ml 474 ml Output Urine Total 900 ml 500 ml 480 ml # Bowel Movements 2 0 1 Result Diagram: 07/14/16 0630 07/16/16 0720 Objective Remarks awake and alert, oriented x 3, appears anxious and guarded lungs clear with no wheezing chest wall deep open wound-with dressing in place Regular rate and rhythm with no murmurs. abdomen soft, nontender right BKA- post op dressing in place Procedures 07/10- right BKA A/P Assessment and Plan 56 years old male S/P right BKA 07/10 for Acute Right foot gangrene with cellulitis cultures from - Pseudomonas/Enterobacter Underlying Peripheral vascular disease -continue on IV antibiotics- Pseudomonas - sensitive to Zosyn. Enterobacter - on Vancomycin - Vascular surgery ff closely and may need further debridement - Percocet prn for pain - IV Morphine 4 mg IV prn, continue on Percocet 5 q 4 prn. ON duragesic patch - Gabapentin 100 mg tid - appreciate ID seeing patient Tachycardic- some anxiety component/pain uncontrolled History of Bipolar disorder- per brother recluse. - continue on Ativan 0,5 mg po q8 - Lopressor 12.5 po bid - BPs 140s/90s - H and H in am -Morphine. continue on Percocet, Gabapentin History of right chest melanoma S/P wide excision some surrounding cellulitis -OP ff up with Oncology - at one point under hospice- palliative care following - d/w wound care team- ? don't do VAC over a malignant wound - area is too wide to close spontaneously - may eventually need flap for this - Plastics surgery following, pt needs soft tissue coverage. However If he chooses to be on hospice, plastic surgeon will need to discuss the other non surgical options. Will discuss with palliative care team in the morning HYponatremia- asymptomatic. TSH normal DVT prophylaxiswith heparin drip. GI prophylaxis on pantoprazole. Discharge Planning DC pending further workup and clinical improvement. Discussed with palliative care team in a.jade. Freya Wilson MD Jul 16, 2016 17:40
[2016-07-17] MEDS: MORPHINE SULFATE 4 MG/ML INJ IV PUSH PRN ×5 (03:47→22:34)
[2016-07-17] MEDS: SODIUM CHLORIDE 0.9% FLUSH 10 ML FLUSH IV FLUSH PRN (03:47)
[2016-07-17] MEDS: oxyCODONE/ACETAMINOPHEN 5 MG/325 MG TAB PO PRN ×4 (05:21→20:56)
[2016-07-17] MEDS: PIPERACIL-TAZO 4.5 GM PREMIX 100 ML IV SCH ×4 (05:21→22:34)
[2016-07-17] MEDS: METOPROLOL TARTRATE 25 MG TAB PO SCH ×3 (05:22→20:56)
[2016-07-17 05:28] VITALS: BP 146/63; PULSE 112; RESP 18; TEMP 97.8; O2SAT 95
[2016-07-17 08:00] VITALS: BP 124/71; PULSE 80; PULSE 97; RESP 18; TEMP 97.6; O2SAT 97
[2016-07-17] MEDS: PANTOPRAZOLE SOD 40 MG DELAYED RELEASE TAB PO SCH (08:39)
[2016-07-17] MEDS: GABAPENTIN 100 MG CAP PO SCH ×3 (08:39→16:38)
[2016-07-17] MEDS: DOCUSATE SODIUM 100 MG CAP PO SCH ×2 (08:40→20:56)
[2016-07-17] MEDS: SODIUM CHLORIDE 0.9% FLUSH 10 ML FLUSH IV FLUSH SCH ×2 (08:43→20:56)
[2016-07-17 09:24] LABS: MEAN CELL VOLUME 94.2 FL (80.0-100.0); MEAN CORPUSCULAR HGB CONC 31.9 % (32.0-36.0); PLATELET COUNT 380 TH/MM3 (150-450); RED BLOOD COUNT 3.19 MIL/MM3 (4.50-5.90); RED CELL DISTRIBUTION WIDTH 19.6 % (11.6-17.2); REVIEW FLAG FINAL; WHITE BLOOD COUNT 8.4 TH/MM3 (4.0-11.0)
[2016-07-17] MEDS ORDERED: PHARMACY ORDERED LAB ONE (09:45)
[2016-07-17] MEDS: VANCOMYCIN 1,000 MG/NS 250 ML IV SCH ×2 (10:04)
[2016-07-17 12:00] VITALS: BP 115/66; PULSE 95; RESP 20; TEMP 98.3; O2SAT 94
--- NOTE | 2016-07-17 14:35 | HHI.IDPN ---
Subjective Subjective Remarks ID Xcover for Pankaj Interiano chart reviewed Mr. Quinones is a 56 y/p CM with PMHx of melanoma of right chest (20 years ago) with new wound in this area, PVD, COPD, bipolar disorder and tobacco abuse. Patient reports he had resection of melanoma 20 years ago, then he recently picked at the scar and it got worse. He is a poor historian. 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 There is a concern that the wound may not heal as well and may need further revision. Postoperatively patient has been fairly okay with no fevers minimal elevation of white count postoperatively as expected. It appears tiffani the surgical incision hasn't been healing well , pt developped some ischemia arounf the incuision He c/o pain in his RLE Patient has been placed on Zosyn IV as well as vancomycin IV. Dr. Tan is ff Dw Dr Juarez: he thinks to allow more demarkation and later perform debrimement no plans for higher level amputation Pt co generalyzed edema Overnight events reviewed. No fevers No rash No diarrhea Antibiotics Zosyn IV Vanco IV Lines Line sites with no e.o infection. Past Medical History reviewed Allergies: Coded Allergies: No Known Allergies (Unverified , 07/08/16) Objective . Vital Signs Date Time Temp Pulse Resp B/P Pulse Ox O2 Delivery O2 Flow Rate FiO2 07/17/16 12:00 98.3 95 20 115/66 94 07/17/16 08:00 97.6 97 18 124/71 97 07/17/16 07:15 Room Air 07/17/16 05:28 97.8 112 18 146/63 95 07/16/16 23:50 98.1 111 18 142/74 95 07/16/16 20:55 98.1 105 18 124/73 91 07/16/16 20:00 Room Air 07/16/16 20:00 92 07/16/16 16:00 98.0 85 18 112/70 97 07/16/16 07/16/16 07/17/16 15:00 23:00 07:00 Intake Total 834 ml 480 ml 480 ml Output Total 600 ml 250 ml Balance 234 ml 230 ml 480 ml Intake Oral 360 ml 480 ml 480 ml IV Total 474 ml Output Urine Total 600 ml 250 ml # Voids 4 # Bowel Movements 1 1 1 . Laboratory Tests Test 07/17/16 08:21 White Blood Count 8.4 TH/MM3 Red Blood Count 3.19 MIL/MM3 Hemoglobin 9.6 GM/DL Hematocrit 30.0 % Mean Corpuscular Volume 94.2 FL Mean Corpuscular Hemoglobin 30.0 PG Mean Corpuscular Hemoglobin 31.9 % Concent Red Cell Distribution Width 19.6 % Platelet Count 380 TH/MM3 Mean Platelet Volume 6.9 FL Laboratory Tests Test 07/16/16 07:20 Creatinine 0.67 MG/DL Estimat Glomerular Filtration 122 ML/MIN Rate Physical Exam GENERAL: This is a well-nourished, well-developed patient, in no apparent distress. SKIN: No rashes, ecchymoses or lesions. Cool and dry. HEAD: Atraumatic. Normocephalic. No temporal or scalp tenderness. EYES: Pupils equal round and reactive. Extraocular motions intact. No scleral icterus. No injection or drainage. ENT: Nose without bleeding, purulent drainage or septal hematoma. Throat without erythema, tonsillar hypertrophy or exudate. Uvula midline. Airway patent. NECK: Trachea midline. Supple, nontender, no meningeal signs. CARDIOVASCULAR: Regular rate and rhythm without murmurs, gallops, or rubs. On the right side of the chest wall he has a chronic fungating-appearing wound with firm fixed edges and with grayish white fibrinous exudate. RESPIRATORY: Clear to auscultation. Breath sounds equal bilaterally. No wheezes , rales, or rhonchi. GASTROINTESTINAL: Abdomen soft, non-tender, nondistended. MUSCULOSKELETAL: Right BKA surgical site with ischemic appearing skin margins , purple and dusky discoloration There is some post op ecchymosis noted as well. LLE with at least 3+ soft pitting edmea + some cyanosis present NEUROLOGICAL: Awake and alert. Grossly non focal Psych: cooperative, flat affect. IV line sites with no e.o infection. Assessment & Plan Remarks Possible right BKA surgical site infection/delayed healing due to vascular issues. Right chest wall fungating ulceration. Prior site of melanoma concerning for recurrence of melanoma with secondary infection. COPD Tobacco and alcohol abuse Bipolar disorder Recommendations: At the present time it appears that patient has more vascular issues which may be contributing to his delayed wound healing clinically the patient does not behave like he has an infection as his white count is normal, has no fevers and the surgical site has no signs of infection. cont Zosyn IV for now Continue vancomycin IV target trough 10-15 for skin soft tissue infection for now Monitor closely clinically monitor WBC Case dw Dr. Juarez: He will likely need revision of stump skin suture line. If intra op no infection may consider deescalation or stopping antibiotics post procedure. Follow clinically. Alexandra Spencer MD Jul 17, 2016 14:35
--- NOTE | 2016-07-17 14:42 | HHI.PR ---
Subjective Remarks Pt complaining of pain in his left leg. states it feels better when he sits up but he is trying to lay down and elevate the leg when he can. denies any CP/SOB/ N/V Objective Vitals Vital Signs Date Time Temp Pulse Resp B/P Pulse Ox O2 Delivery O2 Flow Rate FiO2 07/17/16 12:00 98.3 95 20 115/66 94 07/17/16 08:00 97.6 97 18 124/71 97 07/17/16 07:15 Room Air 07/17/16 05:28 97.8 112 18 146/63 95 07/16/16 23:50 98.1 111 18 142/74 95 07/16/16 20:55 98.1 105 18 124/73 91 07/16/16 20:00 Room Air 07/16/16 20:00 92 07/16/16 16:00 98.0 85 18 112/70 97 I/O 07/16/16 07/16/16 07/16/16 07/17/16 07/17/16 07/17/16 07:00 15:00 23:00 07:00 15:00 23:00 Intake Total 415 ml 834 ml 480 ml 480 ml 304 ml Output Total 480 ml 600 ml 250 ml Balance -65 ml 234 ml 230 ml 480 ml 304 ml Intake Oral 0 ml 360 ml 480 ml 480 ml IV Total 415 ml 474 ml 304 ml Output Urine Total 480 ml 600 ml 250 ml # Voids 4 # Bowel Movements 1 1 1 1 Result Diagram: 07/17/16 0821 07/16/16 0720 Objective Remarks awake and alert, oriented x 3, appears anxious and guarded lungs clear with no wheezing chest wall deep open wound-with dressing in place Regular rate and rhythm with no murmurs. abdomen soft, nontender right BKA- post op dressing in place, left lower extremity w swelling noted and tender to touch Procedures 07/10- right BKA A/P Assessment and Plan 56 years old male S/P right BKA 07/10 for Acute Right foot gangrene with cellulitis cultures from - Pseudomonas/Enterobacter Underlying Peripheral vascular disease - Vascular surgery ff, per their note:" Some ischemic skin edge alongside lateral aspects of closure line" plan is to allow to demarcate first and then gently debride this in the OR as necessary. Continue dressings and care. Per ID Continue Zosyn IV, Continue vancomycin IV target trough 10-15 for skin soft tissue infection If intra op no infection may consider deescalation or stopping antibiotics post procedure. - Percocet prn for pain - IV Morphine 4 mg IV prn, continue on Percocet 5 q 4 prn. ON duragesic patch - Gabapentin 100 mg tid - appreciate ID seeing patient Tachycardic- some anxiety component/pain uncontrolled History of Bipolar disorder- per brother recluse. - continue on Ativan 0,5 mg po q8 - Lopressor 12.5 po bid - BPs 140s/90s - H and H in am -Morphine. continue on Percocet, Gabapentin History of right chest melanoma S/P wide excision some surrounding cellulitis -OP ff up with Oncology - at one point under hospice- palliative care following - d/w wound care team- ? don't do VAC over a malignant wound - area is too wide to close spontaneously - may eventually need flap for this - Plastics surgery following, pt needs soft tissue coverage. However If he chooses to be on hospice, plastic surgeon will need to discuss the other non surgical options. I have discussed this w Palliative care team and they will contact pt's brother and see what plan of care is. Plastic sx will need to be notified of decision. HYponatremia- asymptomatic. TSH normal left lower extremity edema: u/s of LE to r/o DVT DVT prophylaxiswith heparin drip. GI prophylaxis on pantoprazole. Discharge Planning Palliative care will discuss plan of care w brother today or wednesday. CM assisting w placement Plastic sx awaiting decision hospice vs aggressive care to proceed awaiting final recs from ID and Sx Freya Wilson MD Jul 17, 2016 14:42
--- NOTE | 2016-07-17 15:49 | RADRPT ---
EXAM DATE/TIME: 07/17/2016 14:52 [facility] COMPARISON: No previous studies available for comparison. INDICATIONS : Left leg swelling. MEDICAL HISTORY : Left leg pain. Reading glasses. Blurred vision. Cough. Dyspnea. Appetite changes. Erectile dysfunctio n. Joint pain. Depression. Anxiety. Melanoma. Chemotherapy. Radiation therapy. Bruising. Pruritis. Fa tigue. SURGICAL HISTORY : Right leg amputated below knee. ENCOUNTER: Initial ACUITY: 1 week PAIN SCORE: 10/10 LOCATION: Left leg. TECHNIQUE: Venous ultrasound of the leg was performed from the inguinal ligament to the proximal calf. Real-dru e, color Doppler and spectral tracing, compression and augmentation techniques were used. FINDINGS: There is normal compressibility of the deep venous system from the inguinal region to the proximal ca lf. No echogenic clot is seen in the lumen of the common femoral, femoral, popliteal, and posterior tibial veins. There is a normal response of the venous system to proximal and distal augmentation an d respiration. CONCLUSION: 1. No sonographic evidence for left lower extremity DVT. Roger Aguilar MD on July 17, 2016 at 15:47 Board Certified Radiologist. This report was verified electronically.
[2016-07-17 16:00] VITALS: BP 127/65; PULSE 101; RESP 20; TEMP 98; O2SAT 96
[2016-07-17] MEDS: fentaNYL 50 MCG/HR PATCH T-DERMAL SCH (16:45)
--- NOTE | 2016-07-17 17:19 | PD.CAR.PN ---
CVT Progress Note Subjective/Hospital Course: Referral received Full consult BRUNO Juarez 07/11/16 Patient is status post right below-knee amputation. Incision is clean and dry Dressing intact We'll keep dressing until Wednesday Nothing to add to care 07/12/16 Dressing clean and dry We'll remove dressing Wednesday Patient is comfortable tolerating diet and doing well at this time 07/13/16 Incision is clean and dry There is an area about 4 mm in width at the very edge of the incision where skin seems to be slightly purplish and hypoperfused Patient does have poor skin perfusion and hopefully this is going to heal. Right now patient just needs daily dressings and by the end of week I'll reevaluated and if necessary debride a little of the skin Otherwise stump is healing nicely 07/16/16 Some ischemic skin edge alongside lateral aspects of closure line, will allow to demarcate first and then gently debride this in the OR as necessary. Continue dressings and care 07/17/16 The livid purplish area of the skin along the closure site is actually looking little better and there is still a livid blotch more prominent on the lateral superior aspect of the stump measuring about 1.5 cm in diameter. At this point the deeper layers are healing nicely and skin is still not demarcated as far as any level of necrosis so I'm not going to debride anything right now I'll let the deep layers he'll skin he'll and then what every is left we can always debridement in the future when the deeper layers are well healed and have come together Objective: Vital Signs Date Time Temp Pulse Resp B/P Pulse Ox O2 Delivery O2 Flow Rate FiO2 07/17/16 16:00 98.0 101 20 127/65 96 07/17/16 12:00 98.3 95 20 115/66 94 07/17/16 08:00 80 07/17/16 08:00 97.6 97 18 124/71 97 07/17/16 07:15 Room Air 07/17/16 05:28 97.8 112 18 146/63 95 07/16/16 23:50 98.1 111 18 142/74 95 07/16/16 20:55 98.1 105 18 124/73 91 07/16/16 20:00 Room Air 07/16/16 20:00 92 Labs: Laboratory Tests Test 07/17/16 07/17/16 08:21 09:45 White Blood Count 8.4 TH/MM3 (4.0-11.0) Red Blood Count 3.19 MIL/MM3 (4.50-5.90) Hemoglobin 9.6 GM/DL (13.0-17.0) Hematocrit 30.0 % (39.0-51.0) Mean Corpuscular Volume 94.2 FL (80.0-100.0) Mean Corpuscular Hemoglobin 30.0 PG (27.0-34.0) Mean Corpuscular Hemoglobin 31.9 % Concent (32.0-36.0) Red Cell Distribution Width 19.6 % (11.6-17.2) Platelet Count 380 TH/MM3 (150-450) Mean Platelet Volume 6.9 FL (7.0-11.0) Vancomycin Level Trough 17.9 MCG/ML (5.0-10.0) Result Diagram: 07/17/16 0821 07/16/16 0720 Vanessa Tan MD Jul 17, 2016 17:19
[2016-07-17 20:23] VITALS: BP 105/66; PULSE 105; RESP 20; TEMP 98.4; O2SAT 97
[2016-07-17 21:55] VITALS: PULSE 97
[2016-07-18] VITALS (8 sets, daily range): BP systolic 100–132; BP diastolic 57–71; PULSE 88–114; RESP 16–22; TEMP 98–98.4; O2SAT 93–97
[2016-07-18] MEDS: MORPHINE SULFATE 4 MG/ML INJ IV PUSH PRN ×3 (02:28→20:18)
[2016-07-18] MEDS: VANCOMYCIN INJ 750 MG in SODIUM CHLOR 0.9% 250 ML INJ 250 ML IV SCH ×2 (03:02→14:59)
[2016-07-18] MEDS: METOPROLOL TARTRATE 25 MG TAB PO SCH ×3 (04:41→14:24)
[2016-07-18] MEDS: oxyCODONE/ACETAMINOPHEN 5 MG/325 MG TAB PO PRN ×5 (04:41→22:33)
[2016-07-18] MEDS: PIPERACIL-TAZO 4.5 GM PREMIX 100 ML IV SCH ×4 (04:41→23:54)
[2016-07-18] MEDS: LORazepam 0.5 MG TAB PO PRN (05:47)
[2016-07-18] MEDS: DOCUSATE SODIUM 100 MG CAP PO SCH ×2 (09:00→20:18)
[2016-07-18] MEDS: GABAPENTIN 100 MG CAP PO SCH ×3 (09:09→18:30)
[2016-07-18] MEDS: PANTOPRAZOLE SOD 40 MG DELAYED RELEASE TAB PO SCH (09:09)
[2016-07-18] MEDS: SODIUM CHLORIDE 0.9% FLUSH 10 ML FLUSH IV FLUSH SCH ×2 (09:16→20:19)
--- NOTE | 2016-07-18 17:57 | HHI.PR ---
Subjective Remarks Seen in his bedroom in the presence of nurse Miss Parekh, no nausea, vomit or diarrhea. in sitting position. still awaiting for final disposition by Palliative care. Objective Vital Signs Date Time Temp Pulse Resp B/P Pulse Ox O2 Delivery O2 Flow Rate FiO2 07/18/16 16:00 98.4 92 18 123/71 94 07/18/16 15:25 18 07/18/16 14:24 95 100/57 07/18/16 12:00 98.0 100 18 121/68 97 07/18/16 08:00 98.1 92 18 132/67 93 07/18/16 07:15 97 Room Air 07/18/16 04:09 98.2 88 16 106/64 96 07/18/16 02:49 16 07/18/16 00:05 98.4 105 20 105/66 97 07/18/16 00:03 98.4 105 20 105/66 97 07/17/16 21:55 97 07/17/16 21:54 97 Room Air 07/17/16 20:23 98.4 105 20 105/66 97 I/O 07/17/16 07/17/16 07/17/16 07/18/16 07/18/16 07/18/16 07:00 15:00 23:00 07:00 15:00 23:00 Intake Total 480 ml 784 ml 360 ml 520 ml Output Total 600 ml 600 ml Balance 480 ml 184 ml 360 ml -80 ml Intake Oral 480 ml 480 ml 360 ml 520 ml IV Total 304 ml Output Urine Total 600 ml 600 ml # Voids 4 2 # Bowel Movements 1 2 0 0 Result Diagram: 07/17/16 0821 07/18/16 0840 Imaging Last Impressions Lower Extremity Ultrasound 07/17/16 0000 Signed Impressions: Service Date/Time: Sunday, July 17, 2016 14:52 - CONCLUSION: 1. No sonographic evidence for left lower extremity DVT. Roger Aguilar MD Procedures 07/10- right BKA Other Results Laboratory Tests Test 07/13/16 07/17/16 07/17/16 07/18/16 20:05 08:21 09:45 08:40 Crossmatch Leukocyte-Reduced Red Blood Cells Blood Bank Comment White Blood Count 8.4 TH/MM3 Red Blood Count 3.19 MIL/MM3 Hemoglobin 9.6 GM/DL Hematocrit 30.0 % Mean Corpuscular Volume 94.2 FL Mean Corpuscular Hemoglobin 30.0 PG Mean Corpuscular Hemoglobin 31.9 % Concent Red Cell Distribution Width 19.6 % Platelet Count 380 TH/MM3 Mean Platelet Volume 6.9 FL Vancomycin Level Trough 17.9 MCG/ML Creatinine 0.67 MG/DL Estimat Glomerular Filtration 122 ML/MIN Rate Objective Remarks GENERAL: No acute distress. SKIN: Warm and dry. HEAD: Atraumatic. Normocephalic. EYES: Pupils equal and round. No scleral icterus. No injection or drainage. ENT: No nasal bleeding or discharge. Mucous membranes pink and moist. NECK: Trachea midline. No JVD. CARDIOVASCULAR: Regular rate and rhythm. RESPIRATORY: normal breath sounds, no wheezing, right anterior chest wound dressed. GASTROINTESTINAL: Abdomen soft, non-tender, nondistended. Hepatic and splenic margins not palpable. MUSCULOSKELETAL: Right BKA, post op dressing in place, left lower extremity with swelling noted and tender to touch. NEUROLOGICAL: Awake and alert. No obvious cranial nerve deficits. Motor grossly within normal limits. Five out of 5 muscle strength in the arms and legs. Normal speech. PSYCHIATRIC: Appropriate mood and affect; insight and judgment normal. Medications and IVs Current Medications Medications (Trade) Dose Ordered Sig/Carol Ann Route Start Time Stop Time Status Last Admin (NS Flush) 2 ml UNSCH PRN IV FLUSH 07/08/16 20:30 07/17/16 03:47 (NS Flush) 2 ml BID IV FLUSH 07/08/16 21:00 07/18/16 09:16 Naloxone HCl 0.4 mg 0.4 mg UNSCH PRN IV 07/08/16 20:30 Pharmacy Profile Note 0 ml @ 0 mls/hr UNSCH OTHER 07/08/16 22:45 Piperacillin Sod/ Tazobactam Sod 100 ml @ 200 mls/hr Q6H IV 07/08/16 23:00 07/18/16 12:47 (Heparin-D5W Inj) 250 ml @ 0 mls/hr TITRATE IV 07/08/16 22:45 Hold 07/09/16 23:45 (Protonix) 40 mg DAILY PO 07/09/16 09:00 07/18/16 09:09 (Duragesic 50 Mcg Patch.72 Hr) 1 patch Q3D T-DERMAL 07/11/16 17:00 07/17/16 16:45 (Percocet 5-325 Mg) 1 tab Q4H PRN PO 07/11/16 16:15 07/18/16 14:14 (Neurontin) 100 mg TID PO 07/11/16 18:00 07/18/16 14:14 (Pill Splitter) 1 ea UNSCH PRN OTHER 07/12/16 12:45 (Ativan) 0.25 mg Q8HR PRN PO 07/12/16 14:00 07/18/16 05:47 (Colace) 100 mg BID PO 07/12/16 21:00 07/16/16 09:35 (Morphine Inj) 4 mg Q4HR PRN IV PUSH 07/14/16 12:00 07/18/16 16:27 Metoprolol Tartrate 12.5 mg 12.5 mg Q8H PO 07/14/16 13:00 07/18/16 04:41 (Vancomycin Inj/ NS 250 ml Inj) 257.5 ml @ 257.5 mls/ hr Q12H IV 07/18/16 04:00 07/18/16 14:59 Miscellaneous Information SPECIFIC LAB TO BE ... ONCE ONCE .XX 07/19/16 03:45 07/19/16 03:46 A/P Assessment and Plan S/P right BKA 07/10 for Acute Right foot gangrene with cellulitis cultures from - Pseudomonas/Enterobacter Underlying Peripheral vascular disease - Vascular surgery following to perform I and D as needed. continue Zosyn and Vancomycin as per ID specialist, Pain - Percocet prn for pain - IV Morphine 4 mg IV prn, continue on Percocet 5 q 4 prn. ON duragesic patch - Gabapentin 100 mg tid Bipolar disorder- per brother recluse. - continue on Ativan 0,5 mg po q8 - Lopressor 12.5 po bid - BPs 140s/90s Right Chest melanoma S/P wide excision some surrounding cellulitis -Plastic Surgery following, and dairy specialist. - at one point under hospice- palliative care following - d/w wound care team- ? don't do VAC over a malignant wound - area is too wide to close spontaneously - customer management specialist awaiting final by Palliative care to decide next step. closure versus Medical Management. Hyponatremia- asymptomatic. TSH normal left lower extremity edema: u/s of LE to r/o DVT DVT prophylaxiswith heparin drip. GI prophylaxis on pantoprazole. Discharge Planning Palliative care will discuss plan of care w brother today or wednesday. CM assisting w placement Plastic sx awaiting decision hospice vs aggressive care to proceed awaiting final recs from ID and Sx Francisco Javier Dave MD Jul 18, 2016 17:57 GI prophylaxis on pantoprazole. Discharge Planning Palliative care will discuss plan of care w brother today or wednesday. CM assisting w placement Plastic sx awaiting decision hospice vs aggressive care to proceed awaiting final recs from ID and Sx Francisco Javier Dave MD Jul 18, 2016 17:57
[2016-07-19] VITALS (8 sets, daily range): BP systolic 112–143; BP diastolic 60–71; PULSE 84–113; RESP 16–22; TEMP 97.6–98.3; O2SAT 95–98
[2016-07-19] MEDS: MORPHINE SULFATE 4 MG/ML INJ IV PUSH PRN ×6 (00:37→21:39)
[2016-07-19] MEDS: oxyCODONE/ACETAMINOPHEN 5 MG/325 MG TAB PO PRN ×6 (02:22→23:25)
[2016-07-19] MEDS ORDERED: PHARMACY ORDERED LAB ONE (03:45)
[2016-07-19] MEDS: VANCOMYCIN INJ 750 MG in SODIUM CHLOR 0.9% 250 ML INJ 250 ML IV SCH ×2 (03:59→15:42)
[2016-07-19] MEDS: METOPROLOL TARTRATE 25 MG TAB PO SCH ×3 (05:17→20:01)
[2016-07-19] MEDS: PIPERACIL-TAZO 4.5 GM PREMIX 100 ML IV SCH ×4 (05:18→22:51)
[2016-07-19] MEDS: SODIUM CHLORIDE 0.9% FLUSH 10 ML FLUSH IV FLUSH SCH ×2 (08:36→20:00)
[2016-07-19] MEDS: GABAPENTIN 100 MG CAP PO SCH ×3 (08:36→17:26)
[2016-07-19] MEDS: DOCUSATE SODIUM 100 MG CAP PO SCH ×2 (08:36→20:00)
[2016-07-19] MEDS: PANTOPRAZOLE SOD 40 MG DELAYED RELEASE TAB PO SCH (08:36)
--- NOTE | 2016-07-19 10:33 | HHI.PR ---
Subjective Remarks Stable in his bedroom asked about latest decision about Hospice the patient states he is waiting for his Brother who will take the last decision about his case, he lives in [place], and Palliative Care is following the case has to be done tomorrow, no nausea, vomit or diarrhea, Objective Vital Signs Date Time Temp Pulse Resp B/P Pulse Ox O2 Delivery O2 Flow Rate FiO2 07/19/16 10:07 97 Room Air 07/19/16 09:01 18 07/19/16 08:00 97.6 94 16 143/71 97 07/19/16 07:27 18 07/19/16 04:00 Room Air 07/19/16 04:00 Room Air 07/19/16 04:00 98.1 113 22 132/60 95 07/19/16 00:00 Room Air 07/19/16 00:00 98.3 102 20 124/68 96 07/18/16 20:00 Room Air 07/18/16 20:00 106 07/18/16 20:00 98.0 114 22 131/66 97 07/18/16 16:00 98.4 92 18 123/71 94 07/18/16 14:24 95 100/57 07/18/16 12:00 98.0 100 18 121/68 97 I/O 07/18/16 07/18/16 07/18/16 07/19/16 07/19/16 07/19/16 07:00 15:00 23:00 07:00 15:00 23:00 Intake Total 520 ml 960 ml 1137 ml 460 ml Output Total 600 ml 1400 ml 1650 ml Balance -80 ml -440 ml 1137 ml -1190 ml Intake Oral 520 ml 960 ml IV Total 1137 ml 460 ml Output Urine Total 600 ml 1400 ml 1650 ml # Bowel Movements 0 1 0 Result Diagram: 07/17/16 0821 07/19/16 0616 Imaging Last Impressions Lower Extremity Ultrasound 07/17/16 0000 Signed Impressions: Service Date/Time: Sunday, July 17, 2016 14:52 - CONCLUSION: 1. No sonographic evidence for left lower extremity DVT. Roger Aguilar MD Procedures 07/10- right BKA Other Results Laboratory Tests Test 07/13/16 07/17/16 07/19/16 07/19/16 20:05 08:21 04:00 06:16 Crossmatch Leukocyte-Reduced Red Blood Cells Blood Bank Comment White Blood Count 8.4 TH/MM3 Red Blood Count 3.19 MIL/MM3 Hemoglobin 9.6 GM/DL Hematocrit 30.0 % Mean Corpuscular Volume 94.2 FL Mean Corpuscular Hemoglobin 30.0 PG Mean Corpuscular Hemoglobin 31.9 % Concent Red Cell Distribution Width 19.6 % Platelet Count 380 TH/MM3 Mean Platelet Volume 6.9 FL Vancomycin Level Trough 14.4 MCG/ML Creatinine 0.66 MG/DL Estimat Glomerular Filtration 124 ML/MIN Rate Objective Remarks GENERAL: No acute distress. SKIN: Warm and dry. HEAD: Atraumatic. Normocephalic. EYES: Pupils equal and round. No scleral icterus. No injection or drainage. ENT: No nasal bleeding or discharge. Mucous membranes pink and moist. NECK: Trachea midline. No JVD. CARDIOVASCULAR: Regular rate and rhythm. RESPIRATORY: normal breath sounds, no wheezing, right anterior chest wound dressed. GASTROINTESTINAL: Abdomen soft, non-tender, nondistended. Hepatic and splenic margins not palpable. MUSCULOSKELETAL: Right BKA, post op dressing in place, left lower extremity with swelling noted and tender to touch. NEUROLOGICAL: Awake and alert. No obvious cranial nerve deficits. Motor grossly within normal limits. Five out of 5 muscle strength in the arms and legs. Normal speech. PSYCHIATRIC: Appropriate mood and affect; insight and judgment normal. Medications and IVs Current Medications Medications (Trade) Dose Ordered Sig/Carol Ann Route Start Time Stop Time Status Last Admin (NS Flush) 2 ml UNSCH PRN IV FLUSH 07/08/16 20:30 07/17/16 03:47 (NS Flush) 2 ml BID IV FLUSH 07/08/16 21:00 07/19/16 08:36 Naloxone HCl 0.4 mg 0.4 mg UNSCH PRN IV 07/08/16 20:30 Pharmacy Profile Note 0 ml @ 0 mls/hr UNSCH OTHER 07/08/16 22:45 Piperacillin Sod/ Tazobactam Sod 100 ml @ 200 mls/hr Q6H IV 07/08/16 23:00 07/19/16 05:18 (Heparin-D5W Inj) 250 ml @ 0 mls/hr TITRATE IV 07/08/16 22:45 Hold 07/09/16 23:45 (Protonix) 40 mg DAILY PO 07/09/16 09:00 07/19/16 08:36 (Duragesic 50 Mcg Patch.72 Hr) 1 patch Q3D T-DERMAL 07/11/16 17:00 07/17/16 16:45 (Percocet 5-325 Mg) 1 tab Q4H PRN PO 07/11/16 16:15 07/19/16 06:15 (Neurontin) 100 mg TID PO 07/11/16 18:00 07/19/16 08:36 (Pill Splitter) 1 ea UNSCH PRN OTHER 07/12/16 12:45 (Ativan) 0.25 mg Q8HR PRN PO 07/12/16 14:00 07/18/16 05:47 (Colace) 100 mg BID PO 07/12/16 21:00 07/19/16 08:36 (Morphine Inj) 4 mg Q4HR PRN IV PUSH 07/14/16 12:00 07/19/16 08:37 Metoprolol Tartrate 12.5 mg 12.5 mg Q8H PO 07/14/16 13:00 07/19/16 05:17 (Vancomycin Inj/ NS 250 ml Inj) 257.5 ml @ 257.5 mls/ hr Q12H IV 07/18/16 04:00 07/19/16 03:59 A/P Assessment and Plan S/P right BKA 07/10 for Acute Right foot gangrene with cellulitis cultures from - Pseudomonas/Enterobacter Underlying Peripheral vascular disease - Vascular surgery following to perform I and D as needed. continue Zosyn and Vancomycin as per ID specialist, Pain - Percocet prn for pain - IV Morphine 4 mg IV prn, continue on Percocet 5 q 4 prn. ON duragesic patch - Gabapentin 100 mg tid Bipolar disorder- per brother recluse. - continue on Ativan 0,5 mg po q8 - Lopressor 12.5 po bid - BPs 140s/90s Right Chest melanoma S/P wide excision some surrounding cellulitis -Plastic Surgery following, and locator specialist. - at one point under hospice- palliative care following - d/w wound care team- ? don't do VAC over a malignant wound - area is too wide to close spontaneously - philosophy specialist awaiting final by Palliative care to decide next step. closure versus Medical Management. Hyponatremia- asymptomatic. TSH normal left lower extremity edema: u/s of LE to r/o DVT DVT prophylaxiswith heparin drip. GI prophylaxis on pantoprazole. No changes to anterior assessment. Discharge Planning Palliative care will discuss plan of care w brother today or wednesday. CM assisting w placement Plastic sx awaiting decision hospice vs aggressive care to proceed awaiting final recs from ID and Sx Francisco Javier Dave MD Jul 19, 2016 10:33
[2016-07-20] VITALS (8 sets, daily range): BP systolic 99–163; BP diastolic 57–75; PULSE 83–97; RESP 16–20; TEMP 97.5–98.9; O2SAT 94–96
[2016-07-20] MEDS: MORPHINE SULFATE 4 MG/ML INJ IV PUSH PRN ×5 (01:32→20:36)
[2016-07-20] MEDS: oxyCODONE/ACETAMINOPHEN 5 MG/325 MG TAB PO PRN ×5 (03:36→22:28)
[2016-07-20] MEDS: VANCOMYCIN INJ 750 MG in SODIUM CHLOR 0.9% 250 ML INJ 250 ML IV SCH (03:37)
[2016-07-20] MEDS: PIPERACIL-TAZO 4.5 GM PREMIX 100 ML IV SCH ×2 (05:23→11:47)
[2016-07-20] MEDS: METOPROLOL TARTRATE 25 MG TAB PO SCH ×3 (05:24→20:36)
[2016-07-20 08:00] LABS: HEMATOCRIT 27.4 % (39.0-51.0); MEAN CELL VOLUME 93.5 FL (80.0-100.0); MEAN CORPUSCULAR HEMOGLOBIN 31.8 PG (27.0-34.0); MEAN CORPUSCULAR HGB CONC 34.1 % (32.0-36.0); PLATELET COUNT 338 TH/MM3 (150-450); RED BLOOD COUNT 2.93 MIL/MM3 (4.50-5.90); RED CELL DISTRIBUTION WIDTH 18.6 % (11.6-17.2); REVIEW FLAG FINAL
[2016-07-20] MEDS: SODIUM CHLORIDE 0.9% FLUSH 10 ML FLUSH IV FLUSH SCH ×2 (08:13→20:36)
[2016-07-20] MEDS: DOCUSATE SODIUM 100 MG CAP PO SCH ×2 (08:13→20:35)
[2016-07-20] MEDS: PANTOPRAZOLE SOD 40 MG DELAYED RELEASE TAB PO SCH (08:13)
[2016-07-20] MEDS: GABAPENTIN 100 MG CAP PO SCH ×3 (08:13→18:31)
--- NOTE | 2016-07-20 08:33 | HHI.PR ---
Subjective Remarks Stable in his bedroom asked about latest decision about Hospice the patient states he is waiting for his Brother who will take the last decision about his case, he lives in [place], and Palliative Care is following. 07/20: Seen in his bedroom, discussed with Student nurse, patient stable in his bedroom, no nausea, vomit or diarrhea, discussed with environmental protection specialist and recommended for Hospice starting tomorrow. Objective Vital Signs Date Time Temp Pulse Resp B/P Pulse Ox O2 Delivery O2 Flow Rate FiO2 07/20/16 04:17 98.0 97 16 163/75 96 07/20/16 04:00 Room Air 07/20/16 01:07 98.2 88 16 99/57 95 07/20/16 00:00 Room Air 07/19/16 20:56 98.0 85 16 116/65 96 07/19/16 20:00 84 07/19/16 20:00 Room Air 07/19/16 17:51 20 07/19/16 17:26 18 07/19/16 16:00 97.9 87 18 114/64 98 07/19/16 12:00 98.0 100 18 112/63 95 07/19/16 11:56 84 07/19/16 10:07 97 Room Air I/O 07/19/16 07/19/16 07/19/16 07/20/16 07/20/16 07/20/16 07:00 15:00 23:00 07:00 15:00 23:00 Intake Total 460 ml 930 ml 370 ml 265 ml Output Total 1650 ml 550 ml 350 ml 1800 ml Balance -1190 ml 380 ml 20 ml -1535 ml Intake Oral 480 ml 370 ml IV Total 460 ml 450 ml 265 ml Output Urine Total 1650 ml 550 ml 350 ml 1800 ml # Bowel Movements 0 Result Diagram: 07/20/16 0650 07/19/16 0616 Imaging Last Impressions Lower Extremity Ultrasound 07/17/16 0000 Signed Impressions: Service Date/Time: Sunday, July 17, 2016 14:52 - CONCLUSION: 1. No sonographic evidence for left lower extremity DVT. Roger Aguilar MD Procedures 07/10- right BKA Other Results Laboratory Tests Test 07/13/16 07/19/16 07/19/16 07/20/16 20:05 04:00 06:16 06:50 Crossmatch Leukocyte-Reduced Red Blood Cells Blood Bank Comment Vancomycin Level Trough 14.4 MCG/ML Creatinine 0.66 MG/DL Estimat Glomerular Filtration 124 ML/MIN Rate White Blood Count 8.0 TH/MM3 Red Blood Count 2.93 MIL/MM3 Hemoglobin 9.3 GM/DL Hematocrit 27.4 % Mean Corpuscular Volume 93.5 FL Mean Corpuscular Hemoglobin 31.8 PG Mean Corpuscular Hemoglobin 34.1 % Concent Red Cell Distribution Width 18.6 % Platelet Count 338 TH/MM3 Mean Platelet Volume 7.0 FL Objective Remarks GENERAL: No acute distress. SKIN: Warm and dry. HEAD: Atraumatic. Normocephalic. EYES: Pupils equal and round. No scleral icterus. No injection or drainage. ENT: No nasal bleeding or discharge. Mucous membranes pink and moist. NECK: Trachea midline. No JVD. CARDIOVASCULAR: Regular rate and rhythm. RESPIRATORY: normal breath sounds, no wheezing, right anterior chest wound dressed. GASTROINTESTINAL: Abdomen soft, non-tender, nondistended. Hepatic and splenic margins not palpable. MUSCULOSKELETAL: Right BKA, post op dressing in place, left lower extremity with swelling noted and tender to touch. NEUROLOGICAL: Awake and alert. No obvious cranial nerve deficits. Motor grossly within normal limits. Five out of 5 muscle strength in the arms and legs. Normal speech. PSYCHIATRIC: Appropriate mood and affect; insight and judgment normal. Medications and IVs Current Medications Medications (Trade) Dose Ordered Sig/Carol Ann Route Start Time Stop Time Status Last Admin (NS Flush) 2 ml UNSCH PRN IV FLUSH 07/08/16 20:30 07/17/16 03:47 (NS Flush) 2 ml BID IV FLUSH 07/08/16 21:00 07/20/16 08:13 Naloxone HCl 0.4 mg 0.4 mg UNSCH PRN IV 07/08/16 20:30 Pharmacy Profile Note 0 ml @ 0 mls/hr UNSCH OTHER 07/08/16 22:45 Piperacillin Sod/ Tazobactam Sod 100 ml @ 200 mls/hr Q6H IV 07/08/16 23:00 07/20/16 05:23 (Heparin-D5W Inj) 250 ml @ 0 mls/hr TITRATE IV 07/08/16 22:45 Hold 07/09/16 23:45 (Protonix) 40 mg DAILY PO 07/09/16 09:00 07/20/16 08:13 (Duragesic 50 Mcg Patch.72 Hr) 1 patch Q3D T-DERMAL 07/11/16 17:00 07/17/16 16:45 (Percocet 5-325 Mg) 1 tab Q4H PRN PO 07/11/16 16:15 07/20/16 08:13 (Neurontin) 100 mg TID PO 07/11/16 18:00 07/20/16 08:13 (Pill Splitter) 1 ea UNSCH PRN OTHER 07/12/16 12:45 (Ativan) 0.25 mg Q8HR PRN PO 07/12/16 14:00 07/18/16 05:47 (Colace) 100 mg BID PO 07/12/16 21:00 07/19/16 20:00 (Morphine Inj) 4 mg Q4HR PRN IV PUSH 07/14/16 12:00 07/20/16 05:24 Metoprolol Tartrate 12.5 mg 12.5 mg Q8H PO 07/14/16 13:00 07/20/16 05:24 (Vancomycin Inj/ NS 250 ml Inj) 257.5 ml @ 257.5 mls/ hr Q12H IV 07/18/16 04:00 07/20/16 03:37 A/P Assessment and Plan S/P right BKA 07/10 for Acute Right foot gangrene with cellulitis cultures from - Pseudomonas/Enterobacter Underlying Peripheral vascular disease - Vascular surgery following to perform I and D as needed. continue Zosyn and Vancomycin as per ID specialist, Probable Hospice for tomorrow. Pain - Percocet prn for pain - IV Morphine 4 mg IV prn, continue on Percocet 5 q 4 prn. ON duragesic patch - Gabapentin 100 mg tid Bipolar disorder- per brother recluse. - continue on Ativan 0,5 mg po q8 - Lopressor 12.5 po bid - BPs 140s/90s Right Chest melanoma S/P wide excision some surrounding cellulitis -Plastic Surgery following, and client renewal specialist. - at one point under hospice- palliative care following - d/w wound care team- ? don't do VAC over a malignant wound - area is too wide to close spontaneously - health informatics specialist awaiting final by Palliative care to decide next step. closure versus Medical Management. Hyponatremia- asymptomatic. TSH normal left lower extremity edema: u/s of LE to r/o DVT DVT prophylaxiswith heparin drip. GI prophylaxis on pantoprazole. No changes to anterior assessment. Discharge Planning Hospice for tomorrow. Francisco Javier Dave MD Jul 20, 2016 08:33
[2016-07-20] MEDS: SODIUM CHLORIDE 0.9% FLUSH 10 ML FLUSH IV FLUSH PRN (10:27)
[2016-07-20 12:52] LABS: BICARBONATE 27.4 MEQ/L (21.0-32.0); POTASSIUM 3.7 MEQ/L (3.5-5.1)
--- NOTE | 2016-07-20 13:36 | HHI.IDPN ---
Subjective Subjective Remarks ID Xcover for Pankaj Interiano Doing OK dw Dr Tan - he is planning to monitor his wound May be no need for surgery afebrile Antibiotics Zosyn IV Vanco IV Lines Line sites with no e.o infection. Past Medical History reviewed Allergies: Coded Allergies: No Known Allergies (Unverified , 07/08/16) Objective . Vital Signs Date Time Temp Pulse Resp B/P Pulse Ox O2 Delivery O2 Flow Rate FiO2 07/20/16 12:06 97.5 88 18 122/60 94 07/20/16 08:26 83 07/20/16 08:15 Room Air 07/20/16 08:00 98.3 86 18 106/69 07/20/16 04:17 98.0 97 16 163/75 96 07/20/16 04:00 Room Air 07/20/16 01:07 98.2 88 16 99/57 95 07/20/16 00:00 Room Air 07/19/16 20:56 98.0 85 16 116/65 96 07/19/16 20:00 84 07/19/16 20:00 Room Air 07/19/16 17:51 20 07/19/16 17:26 18 07/19/16 16:00 97.9 87 18 114/64 98 07/19/16 07/19/16 07/20/16 15:00 23:00 07:00 Intake Total 930 ml 370 ml 265 ml Output Total 550 ml 350 ml 1800 ml Balance 380 ml 20 ml -1535 ml Intake Oral 480 ml 370 ml IV Total 450 ml 265 ml Output Urine Total 550 ml 350 ml 1800 ml . Laboratory Tests Test 07/20/16 06:50 White Blood Count 8.0 TH/MM3 Red Blood Count 2.93 MIL/MM3 Hemoglobin 9.3 GM/DL Hematocrit 27.4 % Mean Corpuscular Volume 93.5 FL Mean Corpuscular Hemoglobin 31.8 PG Mean Corpuscular Hemoglobin 34.1 % Concent Red Cell Distribution Width 18.6 % Platelet Count 338 TH/MM3 Mean Platelet Volume 7.0 FL Laboratory Tests Test 07/19/16 07/20/16 06:16 10:45 Creatinine 0.66 MG/DL 0.67 MG/DL Estimat Glomerular Filtration 124 ML/MIN 122 ML/MIN Rate Sodium Level 139 MEQ/L Potassium Level 3.7 MEQ/L Chloride Level 102 MEQ/L Carbon Dioxide Level 27.4 MEQ/L Anion Gap 10 MEQ/L Blood Urea Nitrogen 6 MG/DL Random Glucose 97 MG/DL Calcium Level 9.3 MG/DL Physical Exam GENERAL: This is a well-nourished, well-developed patient, in no apparent distress. SKIN: No rashes, ecchymoses or lesions. Cool and dry. On the right side of the chest wall he has a chronic fungating-appearing wound with firm fixed edges and with grayish white fibrinous exudate. EYES: No scleral icterus. ENT: Oralmucosae moist RESPIRATORY: Clear to auscultation. Breath sounds equal bilaterally. No wheezes , rales, or rhonchi. GASTROINTESTINAL: Abdomen soft, non-tender, nondistended. MUSCULOSKELETAL: Right BKA surgical site with ischemic appearing skin margins , purple and dusky discoloration There is some post op ecchymosis noted as well. It seets improving, dry and demarkating LLE with much improved pitting edmea, just trace to 1+ NEUROLOGICAL: Awake and alert. Grossly non focal Psych: cooperative, flat affect. IV line sites with no e.o infection. Assessment & Plan Remarks Possible right BKA surgical site infection/delayed healing due to vascular issues. - at this point no clinical s/o infx, just some ischemia Right chest wall fungating ulceration. Prior site of melanoma concerning for recurrence of melanoma with secondary infection. COPD Tobacco and alcohol abuse Bipolar disorder Recommendations: At the present time it appears that patient has more vascular issues which may be contributing to his delayed wound healing clinically the patient does not behave like he has an infection as his white count is normal, has no fevers and the surgical site has no signs of infection. dc Zosyn IV dc vancomycin IV Monitor closely clinically monitor WBC Case dw Dr. Juarez: probably no surgery - healling improving Follow clinically. Alexandra Spencer MD Jul 20, 2016 13:36
--- NOTE | 2016-07-20 15:45 | HHI.HCPN ---
Reason for visit a. To assist with evaluation and management of symptoms including: pain, constipation, anxiety b. To assist medical decision maker(s) with: better understanding of current medical conditions; weighing benefits/burdens of medical treatment options; making medical treatment decisions. . (Tanika Olson) Subjective/Interval History Mr. Quinones is a 56 year old male admitted to [facility] on 07/08/16 with right foot cellulitis and gangrene. Mr. Quinones has past medical history of melanoma of right chest (20 years ago) with occurrence, PVD, COPD, bipolar disorder and tobacco abuse. On admission, oncology was consulted for evaluation of melanoma recurrence with a fungating chest wound. The patient did not want aggressive interventions for his malignant melanoma, refusing radiation/ chemotherapy. However, he wanted aggressive management for his right lower extremity. The patient subsequently underwent a right below the knee amputation on 07/10/[address] Tan. Vascular surgery and Infectious disease continue to follow the patient. Right BKA surgical site is dusky in color with no s/s of infection, open area on the lateral aspect of the extremity is noted; left lower extremity is swollen with 2 + edema. US of the left lower extremity on 07/17/2016 showed no evidence of DVT. Patient's vascular issues are likely contributing to delayed healing. He does not appear to have an infection. Afebrile; WBC within normal limits. Zosyn and Vancomycin were discontinued. WBC: 8.0, Hgb 9.3, Hct 27.4, Plts 338 Sodium 139; potassium 3.7, chloride 102, carbon dioxide 27.4, glucose 97, calcium 9.3 BUN 6, creatinine 0.67, GFR 122 Met with patient's at bedside and spoke with patient's brother via telephone. Patient's brother indicating he would like his brother discharged on hospice services, possibly [facility] for symptom management. They do not want to be readmitted on [facility]. The patient remains unsure and would like to discuss this with his brother when he visits this evening; likely decision in the am. . Family/friend interactions Discussed CODE STATUS with patient. Patient stating if he should experience cardiopulmonary arrest, he does not want aggressive interventions but wishes to be allowed to pass peacefully and naturally. Discussed with the patient's brother and [facility] (Dinh) who supports this decision feeling that it would likely only serve to prolong the process of dying. . (Tanika Olson) Advance Directives Living Will: Never completed Health Care Surrogate: Never completed Durable Power of Line Ordering Clinician: Never completed (Tanika Olson) Advance Directive Specifics Date completed: 07/16/2016 . Health Care Surrogate(s): Patient's brother, Dinh Quinones, is designated as the healthcare surrogate. . Documented care wishes: Living will forms at patient's bedside. . (Tanika Olson) Objective Vital Signs Date Time Temp Pulse Resp B/P Pulse Ox O2 Delivery O2 Flow Rate FiO2 07/20/16 12:06 97.5 88 18 122/60 94 07/20/16 08:26 83 07/20/16 08:15 Room Air 07/20/16 08:00 98.3 86 18 106/69 07/20/16 04:17 98.0 97 16 163/75 96 07/20/16 04:00 Room Air 07/20/16 01:07 98.2 88 16 99/57 95 07/20/16 00:00 Room Air 07/19/16 20:56 98.0 85 16 116/65 96 07/19/16 20:00 84 07/19/16 20:00 Room Air 07/19/16 17:51 20 07/19/16 17:26 18 07/19/16 16:00 97.9 87 18 114/64 98 Intake & Output 07/20/16 07/20/16 07:00 19:00 Intake Total 635 ml 54 ml Output Total 2150 ml Balance -1515 ml 54 ml Intake Oral 370 ml IV Total 265 ml 54 ml Output Urine Total 2150 ml . Physical Exam CONSTITUTIONAL/GENERAL: This is an thin, chronically ill appearing patient in no apparent distress TUBES/LINES/DRAINS: PIV SKIN: Right BKA surgical site dusky with open area on lateral aspect of extremity. LLE with 2+ edema. Skin temperature appropriate. Not diaphoretic. HEAD: Atraumatic. Normocephalic. EYES: Pupils equal and round and reactive. Extraocular motions intact. No scleral icterus. No injection or drainage. Fundi not examined. ENT: Hearing grossly normal. Nose without bleeding or purulent drainage. Throat without visible erythema, exudates, masses, or lesions. NECK: Trachea midline. CARDIOVASCULAR: Regular rate and rhythm. No JVD. RESPIRATORY/CHEST: Respirations unlabored. Oxygen saturation the mid 90s on room air. Diminished breath sounds bilaterally. GASTROINTESTINAL: Abdomen soft, non-tender, nondistended. GENITOURINARY: Without palpable bladder distension. Voids in urinal. MUSCULOSKELETAL: Right bilateral lower extremity status post BKA; LLE with 2+ edema. NEUROLOGICAL: Awake and alert. Generalized weakness. Cognitively sharp. Moves all extremities. PSYCHIATRIC: Flat affect, avoidance. Does not wish to speak with Palliative care at this time. . (Tanika Olson) Diagnostic Tests Laboratory Laboratory Tests Test 07/18/16 07/19/16 07/19/16 07/20/16 08:40 04:00 06:16 06:50 Creatinine 0.67 MG/DL 0.66 MG/DL (0.60-1.30) (0.60-1.30) Estimat Glomerular Filtration 122 ML/MIN 124 ML/MIN Rate (>89) (>89) Vancomycin Level Trough 14.4 MCG/ML (5.0-10.0) White Blood Count 8.0 TH/MM3 (4.0-11.0) Red Blood Count 2.93 MIL/MM3 (4.50-5.90) Hemoglobin 9.3 GM/DL (13.0-17.0) Hematocrit 27.4 % (39.0-51.0) Mean Corpuscular Volume 93.5 FL (80.0-100.0) Mean Corpuscular Hemoglobin 31.8 PG (27.0-34.0) Mean Corpuscular Hemoglobin 34.1 % Concent (32.0-36.0) Red Cell Distribution Width 18.6 % (11.6-17.2) Platelet Count 338 TH/MM3 (150-450) Mean Platelet Volume 7.0 FL (7.0-11.0) Test 07/20/16 10:45 Sodium Level 139 MEQ/L (136-145) Potassium Level 3.7 MEQ/L (3.5-5.1) Chloride Level 102 MEQ/L (98-107) Carbon Dioxide Level 27.4 MEQ/L (21.0-32.0) Anion Gap 10 MEQ/L (5-15) Blood Urea Nitrogen 6 MG/DL (7-18) Creatinine 0.67 MG/DL (0.60-1.30) Estimat Glomerular Filtration 122 ML/MIN Rate (>89) Random Glucose 97 MG/DL (74-106) Calcium Level 9.3 MG/DL (8.5-10.1) . (Tanika Olson) Result Diagram: 07/20/16 0650 07/20/16 1045 Assessment and Plan Disease Oriented Problem List: (1) Cellulitis of foot (2) History of melanoma Comment: History melanoma s/p resection 20 years ago, now with recurrence Wide open chest wound 8cm x 7cm x 2cm Oncology consulted; patient does not wish to pursue aggressive intervention Patient was on [facility] prior to admission; will likely opt for hospice in the future but does not want readmission with previous hospice organization Plastic surgery consulted for evaluation/recommendation (3) COPD (chronic obstructive pulmonary disease) (4) Bipolar disorder (5) Gangrene of right foot Comment: Status post right right BKA on 07/11/16 Cultures 07/08/16 with Pseudomonas/Enterobacter Underlying peripheral vascular disease Infectious disease following-IV Zosyn IV vancomycin Symptom Scale: (1) Pain 0-10 Scale: 10 Comment: Intermittent, burning pain in right foot, intermittent pain in chest wound site, temporary relief with medication . (2) Anxiety 0-10 Scale: Unable to quantify Comment: Indicates intermittent anxiety, and long history of anxiety. PRN lorazepam 0.25mg PO available q 8 hours; patient using regularly. (3) Constipation Comment: High risk for constipation secondary to opioids. Currently on Colace 100mg PO two times daily ATC. Will continue to monitor. Pertinent Non-Medical Issues Psychosocial: Single. No children. Lives with brother and sister in law. Spiritual: Not an important part of his life. Legal: Health care surrogate form completed 07/16/2016; patient's brother (Dinh Quinones) is designated as the health surrogate decision maker. Ethical issues impacting care: No known concerns at this time. . Important Contacts * Dinh Quinones, brother: [phone] or [phone] * Princess Quinones, [id number]: [phone] . Prognosis Mr. Quinones is a frail, chronically ill appearing 56-year-old gentleman with gangrene right lower extremity, overall prognosis appears poor. Patient was on hospice services prior to admission, appears hospice appropriate of goals are comfort oriented. . Code Status: No Code Plan * NO CODE * Discussed CODE STATUS with patient. Patient stating if he should experience cardiopulmonary arrest, he does not want aggressive interventions but wishes to be allowed to pass peacefully and naturally. Discussed with the patient's brother and [facility] (Dinh) who supports this decision feeling that it would likely only serve to prolong the process of dying. CODE STATUS change to NO CODE-DNR/DNI. * Decision-making: Health care surrogate form completed 07/16/2016; patient's brother (Dinh Quinones) is designated as the health surrogate decision maker. * Goals: Patient's brother indicating he would like his brother discharged on hospice services, possibly [facility] for symptom management. They do not want to be readmitted on [facility]. The patient remains unsure and would like to discuss this with his brother when he visits this evening. Discussed with nurse (Tia), hospice can be consulted this evening if the patient/family make the decision to proceed with hospice. Otherwise, likely decision in the am. * Symptom management-pain: likely secondary to severe peripheral vascular disease/postoperative pain/wound, metastatic melanoma, and in pain. Patient is on a Duragesic patch and receives gabapentin 100 mg TID. Percocet (5-325mg) and IV morphine are available every 4 hours PRN for breakthrough pain. 24 hour dosing requirements: Percocet 5-325mg x 6 and Morphine 4mg IV x 5. Recommendation to consider starting a long acting pain medication for better symptom management. * Symptom managementconstipation: High risk for constipation secondary to opioids. Currently on Colace 100mg PO two times daily ATC. Will continue to monitor. LBM 07/19/2016 * Spoke with patient's brother at length regarding patient's current clinical condition, treatment options and prognosis. The patient's brother states the patient has a history of noncompliance and refusal of recommended treatment. The patient was on [facility] prior to admission and had moved into his brother/JEANINE home. Dinh (brother) states while it is likely the patient will again opt for hospice services; they were not happy with the previous hospice organization and would not want to use them again. Dinh states the patient will need placement because he and his are no longer able to meet the patient's physical/medical needs. * Discussed with nurse (Tia), case management (Hernandez), and Dr. Mora. * Palliative care will continue to follow throughout hospital course to assist with symptom management and further clarification of treatment goals. . (Tanika Olson) Attestation To help prompt me to consider important information that might be impacting today's encounter and assessment, information from prior notes written by myself or my colleagues may have been "brought forward" into today's note. My signature on this note, however, is an attestation that I personally performed the exam, history, and/or decision-making noted today, and, unless otherwise indicated, the interactions with patient, family, and staff as well as the review of records all occurred today. I also attest that the listed assessment and stated plan reflect my best clinical judgment today based on the combination of historical information, prior notes, and today's exam/ interactions. When time spent is documented, it refers only to time spent today by the signer, or if indicated, combined time spent today by collaborating physician/nurse practitioner. . (Tanika Olson) Attestation Discussed with SERGEI, agree with assessment and plan (Shaquille Palmer MD) Tanika Olson Jul 20, 2016 15:40 Shaquille Palmer MD Jul 22, 2016 13:52
[2016-07-20] MEDS: fentaNYL 50 MCG/HR PATCH T-DERMAL SCH (16:28)
--- NOTE | 2016-07-20 19:07 | PD.CAR.PN ---
CVT Progress Note Subjective/Hospital Course: Referral received Full consult BRUNO Juarez 07/11/16 Patient is status post right below-knee amputation. Incision is clean and dry Dressing intact We'll keep dressing until Wednesday Nothing to add to care 07/12/16 Dressing clean and dry We'll remove dressing Wednesday Patient is comfortable tolerating diet and doing well at this time 07/13/16 Incision is clean and dry There is an area about 4 mm in width at the very edge of the incision where skin seems to be slightly purplish and hypoperfused Patient does have poor skin perfusion and hopefully this is going to heal. Right now patient just needs daily dressings and by the end of week I'll reevaluated and if necessary debride a little of the skin Otherwise stump is healing nicely 07/16/16 Some ischemic skin edge alongside lateral aspects of closure line, will allow to demarcate first and then gently debride this in the OR as necessary. Continue dressings and care 07/17/16 The livid purplish area of the skin along the closure site is actually looking little better and there is still a livid blotch more prominent on the lateral superior aspect of the stump measuring about 1.5 cm in diameter. At this point the deeper layers are healing nicely and skin is still not demarcated as far as any level of necrosis so I'm not going to debride anything right now I'll let the deep layers he'll skin he'll and then what every is left we can always debridement in the future when the deeper layers are well healed and have come together 07/20/16 Incision look better. Superficial skin ischemia. Will leave alone and re-evaluate in a week or two If needed, will debride then. Objective: Vital Signs Date Time Temp Pulse Resp B/P Pulse Ox O2 Delivery O2 Flow Rate FiO2 07/20/16 16:00 98.7 88 20 104/59 96 07/20/16 12:06 97.5 88 18 122/60 94 07/20/16 08:26 83 07/20/16 08:15 Room Air 07/20/16 08:00 98.3 86 18 106/69 07/20/16 04:17 98.0 97 16 163/75 96 07/20/16 04:00 Room Air 07/20/16 01:07 98.2 88 16 99/57 95 07/20/16 00:00 Room Air 07/19/16 20:56 98.0 85 16 116/65 96 07/19/16 20:00 84 07/19/16 20:00 Room Air Labs: Laboratory Tests Test 07/20/16 10:45 Sodium Level 139 MEQ/L (136-145) Potassium Level 3.7 MEQ/L (3.5-5.1) Chloride Level 102 MEQ/L (98-107) Carbon Dioxide Level 27.4 MEQ/L (21.0-32.0) Anion Gap 10 MEQ/L (5-15) Blood Urea Nitrogen 6 MG/DL (7-18) Creatinine 0.67 MG/DL (0.60-1.30) Estimat Glomerular Filtration 122 ML/MIN Rate (>89) Random Glucose 97 MG/DL (74-106) Calcium Level 9.3 MG/DL (8.5-10.1) Result Diagram: 07/20/16 0650 07/20/16 1045 Vanessa Tan MD Jul 20, 2016 19:07
[2016-07-21] VITALS: BP 105/66; PULSE 85; RESP 18; TEMP 98.3; O2SAT 93
[2016-07-21] MEDS: MORPHINE SULFATE 4 MG/ML INJ IV PUSH PRN ×4 (00:29→13:37)
[2016-07-21] MEDS: oxyCODONE/ACETAMINOPHEN 5 MG/325 MG TAB PO PRN ×4 (02:28→15:06)
[2016-07-21] MEDS: METOPROLOL TARTRATE 25 MG TAB PO SCH ×2 (04:41→13:37)
[2016-07-21 05:00] VITALS: BP 108/64; PULSE 90; RESP 18; TEMP 98.3; O2SAT 95
[2016-07-21 07:54] VITALS: PULSE 84
[2016-07-21 08:00] VITALS: BP 108/68; PULSE 83; RESP 18; TEMP 98; O2SAT 95
[2016-07-21] MEDS: PANTOPRAZOLE SOD 40 MG DELAYED RELEASE TAB PO SCH (08:43)
[2016-07-21] MEDS: DOCUSATE SODIUM 100 MG CAP PO SCH (08:43)
[2016-07-21] MEDS: GABAPENTIN 100 MG CAP PO SCH ×2 (08:43→13:37)
[2016-07-21] MEDS: SODIUM CHLORIDE 0.9% FLUSH 10 ML FLUSH IV FLUSH SCH (08:44)
--- NOTE | 2016-07-21 10:19 | HHI.PR ---
Subjective Remarks Stable in his bedroom asked about latest decision about Hospice the patient states he is waiting for his Brother who will take the last decision about his case, he lives in [place], and Palliative Care is following. 07/20: Seen in his bedroom, discussed with Student nurse. 07/21; Seen in his bedroom the patient states he does not want to suffer more and wants to go to SNF with Hospice if possible today, No nausea, vomit or diarrhea, Nurse Miss Weber. Objective Vital Signs Date Time Temp Pulse Resp B/P Pulse Ox O2 Delivery O2 Flow Rate FiO2 07/21/16 08:30 Room Air 07/21/16 08:00 98.0 83 18 108/68 95 07/21/16 07:54 84 07/21/16 05:00 98.3 90 18 108/64 95 07/21/16 04:00 Room Air 07/21/16 00:00 98.3 85 18 105/66 93 07/21/16 00:00 Room Air 07/20/16 20:00 98.9 93 18 102/58 07/20/16 20:00 Room Air 07/20/16 19:45 89 07/20/16 16:00 98.7 88 20 104/59 96 07/20/16 12:06 97.5 88 18 122/60 94 I/O 07/20/16 07/20/16 07/20/16 07/21/16 07/21/16 07/21/16 06:59 14:59 22:59 06:59 14:59 22:59 Intake Total 265 ml 654 ml 360 ml 240 ml Output Total 1800 ml 550 ml Balance -1535 ml 654 ml -190 ml 240 ml Intake Oral 600 ml 360 ml 240 ml IV Total 265 ml 54 ml Output Urine Total 1800 ml 550 ml # Voids 2 2 # Bowel Movements 2 1 Result Diagram: 07/20/16 0650 07/20/16 1045 Imaging Last Impressions Lower Extremity Ultrasound 07/17/16 0000 Signed Impressions: Service Date/Time: Sunday, July 17, 2016 14:52 - CONCLUSION: 1. No sonographic evidence for left lower extremity DVT. Roger Aguilar MD Procedures 07/10- right BKA Other Results Laboratory Tests Test 07/19/16 07/20/16 07/20/16 04:00 06:50 10:45 Vancomycin Level Trough 14.4 MCG/ML White Blood Count 8.0 TH/MM3 Red Blood Count 2.93 MIL/MM3 Hemoglobin 9.3 GM/DL Hematocrit 27.4 % Mean Corpuscular Volume 93.5 FL Mean Corpuscular Hemoglobin 31.8 PG Mean Corpuscular Hemoglobin 34.1 % Concent Red Cell Distribution Width 18.6 % Platelet Count 338 TH/MM3 Mean Platelet Volume 7.0 FL Sodium Level 139 MEQ/L Potassium Level 3.7 MEQ/L Chloride Level 102 MEQ/L Carbon Dioxide Level 27.4 MEQ/L Anion Gap 10 MEQ/L Blood Urea Nitrogen 6 MG/DL Creatinine 0.67 MG/DL Estimat Glomerular Filtration 122 ML/MIN Rate Random Glucose 97 MG/DL Calcium Level 9.3 MG/DL Objective Remarks GENERAL: No acute distress. SKIN: Warm and dry. HEAD: Atraumatic. Normocephalic. EYES: Pupils equal and round. No scleral icterus. No injection or drainage. ENT: No nasal bleeding or discharge. Mucous membranes pink and moist. NECK: Trachea midline. No JVD. CARDIOVASCULAR: Regular rate and rhythm. RESPIRATORY: normal breath sounds, no wheezing, right anterior chest wound dressed. GASTROINTESTINAL: Abdomen soft, non-tender, nondistended. Hepatic and splenic margins not palpable. MUSCULOSKELETAL: Right BKA, post op dressing in place, left lower extremity with swelling noted and tender to touch. NEUROLOGICAL: Awake and alert. No obvious cranial nerve deficits. Motor grossly within normal limits. Five out of 5 muscle strength in the arms and legs. Normal speech. PSYCHIATRIC: Appropriate mood and affect; insight and judgment normal. Medications and IVs Current Medications Medications (Trade) Dose Ordered Sig/Carol Ann Route Start Time Stop Time Status Last Admin (NS Flush) 2 ml UNSCH PRN IV FLUSH 07/08/16 20:30 07/20/16 10:27 (NS Flush) 2 ml BID IV FLUSH 07/08/16 21:00 07/21/16 08:44 Naloxone HCl 0.4 mg 0.4 mg UNSCH PRN IV 07/08/16 20:30 (Heparin-D5W Inj) 250 ml @ 0 mls/hr TITRATE IV 07/08/16 22:45 Hold 07/09/16 23:45 (Protonix) 40 mg DAILY PO 07/09/16 09:00 07/21/16 08:43 (Duragesic 50 Mcg Patch.72 Hr) 1 patch Q3D T-DERMAL 07/11/16 17:00 07/20/16 16:28 (Percocet 5-325 Mg) 1 tab Q4H PRN PO 07/11/16 16:15 07/21/16 06:48 (Neurontin) 100 mg TID PO 07/11/16 18:00 07/21/16 08:43 (Pill Splitter) 1 ea UNSCH PRN OTHER 07/12/16 12:45 (Ativan) 0.25 mg Q8HR PRN PO 07/12/16 14:00 07/18/16 05:47 (Colace) 100 mg BID PO 07/12/16 21:00 07/20/16 20:35 (Morphine Inj) 4 mg Q4HR PRN IV PUSH 07/14/16 12:00 07/21/16 08:44 (Lopressor) 12.5 mg Q8H PO 07/14/16 13:00 07/21/16 04:41 A/P Assessment and Plan S/P right BKA 07/10 for Acute Right foot gangrene with cellulitis cultures from - Pseudomonas/Enterobacter Underlying Peripheral vascular disease - Vascular surgery following to perform I and D as needed. continue Zosyn and Vancomycin as per ID specialist, Probable Hospice later today. Pain - Percocet prn for pain - IV Morphine 4 mg IV prn, continue on Percocet 5 q 4 prn. ON duragesic patch - Gabapentin 100 mg tid Bipolar disorder- per brother recluse. - continue on Ativan 0,5 mg po q8 - Lopressor 12.5 po bid - BPs 140s/90s Right Chest melanoma S/P wide excision some surrounding cellulitis -Plastic Surgery following, and prepress specialist. - at one point under hospice- palliative care following - d/w wound care team- ? don't do VAC over a malignant wound - area is too wide to close spontaneously - proposal specialist awaiting final by Palliative care to decide next step. closure versus Medical Management. Hyponatremia- asymptomatic. TSH normal left lower extremity edema: u/s of LE to r/o DVT DVT prophylaxiswith heparin drip. GI prophylaxis on pantoprazole. Discussed with Patient and Nurse Miss Weber. general operations manager. Discharge Planning Hospice later today Francisco Javier Dave MD Jul 21, 2016 10:19
--- NOTE | 2016-07-21 11:00 | HHI.HCPN ---
Reason for visit a. To assist with evaluation and management of symptoms including: pain, constipation, anxiety b. To assist medical decision maker(s) with: better understanding of current medical conditions; weighing benefits/burdens of medical treatment options; making medical treatment decisions. . (Tanika Olson) Subjective/Interval History Mr. Quinones is a 56 year old male admitted to [facility] on 07/08/16 with right foot cellulitis and gangrene. Mr. Quinones has past medical history of melanoma of right chest (20 years ago) with occurrence, PVD, COPD, bipolar disorder and tobacco abuse. On admission, oncology was consulted for evaluation of melanoma recurrence with a fungating chest wound. The patient did not want aggressive interventions for his malignant melanoma, refusing radiation/ chemotherapy. However, he wanted aggressive management for his right lower extremity. Status post right BKA on 07/10/[address] Tan secondary because of gangrene of the right foot, peripheral vascular disease and diabetes; dressing dry and intact. Left lower extremity with 2+ to 3+ pitting edema, patient reports tenderness to touch. Ultrasound of the left lower extremity on 2016 showed no evidence of DVT. Otherwise, showing no signs of infection; he remains afebrile with no leukocytosis. IV Zosyn and vancomycin were discontinued on 07/20/2016. Patient does not want further surgeries, refusing chemotherapy/radiation for recurrent melanoma. He and his brother, together, have decided to forego further diagnostic testing/aggressive interventions and are requesting hospice services for symptom management and end-of-life care. Hospice consult has been placed. Having ongoing pain that is multi factorial secondary to recurrent melanoma with large left-sided chest wound, nonhealing wounds, recent BKA, peripheral vascular disease, etc. Pain is rated 8 out of 10, patient is unwilling to describe pain. Current orders for IV Morphine and Percocet PRN q4 hours, and both are being used to regularly q4 hours. Patient and family requesting transfer to the [facility] for symptom management of pain, anxiety. . (Tanika Olson) Advance Directives Living Will: Never completed Health Care Surrogate: Never completed Durable Power of Cut Pressman: Never completed (Tanika Olson) Advance Directive Specifics Date completed: 07/16/2016 . Health Care Surrogate(s): Patient's brother, Dinh Quinones, is designated as the healthcare surrogate. . Documented care wishes: Living will forms at patient's bedside. . Significant change in goals: Hospice consult placed; patient and family requesting placement at [facility] for symptom management. . (Tanika Olson) Objective Vital Signs Date Time Temp Pulse Resp B/P Pulse Ox O2 Delivery O2 Flow Rate FiO2 07/21/16 08:30 Room Air 07/21/16 08:00 98.0 83 18 108/68 95 07/21/16 07:54 84 07/21/16 05:00 98.3 90 18 108/64 95 07/21/16 04:00 Room Air 07/21/16 00:00 98.3 85 18 105/66 93 07/21/16 00:00 Room Air 07/20/16 20:00 98.9 93 18 102/58 07/20/16 20:00 Room Air 07/20/16 19:45 89 07/20/16 16:00 98.7 88 20 104/59 96 07/20/16 12:06 97.5 88 18 122/60 94 Intake & Output 07/21/16 07/21/16 07:00 19:00 Intake Total 600 ml Output Total 550 ml Balance 50 ml Intake Oral 600 ml Output Urine Total 550 ml # Voids 2 # Bowel Movements 1 . Physical Exam CONSTITUTIONAL/GENERAL: This is an thin, chronically ill appearing patient in no apparent distress TUBES/LINES/DRAINS: PIV SKIN: Right BKA surgical site dusky with open area on lateral aspect of extremity. LLE with 2+ to 3+ edema. Skin temperature appropriate. Not diaphoretic. HEAD: Atraumatic. Normocephalic. EYES: Pupils equal and round and reactive. Extraocular motions intact. No scleral icterus. No injection or drainage. Fundi not examined. ENT: Hearing grossly normal. Nose without bleeding or purulent drainage. Throat without visible erythema, exudates, masses, or lesions. NECK: Trachea midline. CARDIOVASCULAR: Regular rate and rhythm. No JVD. RESPIRATORY/CHEST: Respirations unlabored. Diminished breath sounds bilaterally. GASTROINTESTINAL: Abdomen soft, non-tender, nondistended. GENITOURINARY: Without palpable bladder distension. Voids in urinal. MUSCULOSKELETAL: Right bilateral lower extremity status post BKA; LLE with 2+ to 3+ = edema. NEUROLOGICAL: Awake and alert. Generalized weakness. Moves all extremities. PSYCHIATRIC: Flat affect, avoidance. Does not wish to speak with Palliative care at this time. . (Tanika Olson) Diagnostic Tests Laboratory Laboratory Tests Test 07/19/16 07/19/16 07/20/16 07/20/16 04:00 06:16 06:50 10:45 Vancomycin Level Trough 14.4 MCG/ML (5.0-10.0) Creatinine 0.66 MG/DL 0.67 MG/DL (0.60-1.30) (0.60-1.30) Estimat Glomerular Filtration 124 ML/MIN 122 ML/MIN Rate (>89) (>89) White Blood Count 8.0 TH/MM3 (4.0-11.0) Red Blood Count 2.93 MIL/MM3 (4.50-5.90) Hemoglobin 9.3 GM/DL (13.0-17.0) Hematocrit 27.4 % (39.0-51.0) Mean Corpuscular Volume 93.5 FL (80.0-100.0) Mean Corpuscular Hemoglobin 31.8 PG (27.0-34.0) Mean Corpuscular Hemoglobin 34.1 % Concent (32.0-36.0) Red Cell Distribution Width 18.6 % (11.6-17.2) Platelet Count 338 TH/MM3 (150-450) Mean Platelet Volume 7.0 FL (7.0-11.0) Sodium Level 139 MEQ/L (136-145) Potassium Level 3.7 MEQ/L (3.5-5.1) Chloride Level 102 MEQ/L (98-107) Carbon Dioxide Level 27.4 MEQ/L (21.0-32.0) Anion Gap 10 MEQ/L (5-15) Blood Urea Nitrogen 6 MG/DL (7-18) Random Glucose 97 MG/DL (74-106) Calcium Level 9.3 MG/DL (8.5-10.1) (Tanika Olson) Result Diagram: 07/20/16 0650 07/20/16 7784 Assessment and Plan Disease Oriented Problem List: (1) Cellulitis of foot (2) History of melanoma Comment: History melanoma s/p resection 20 years ago, now with recurrence Wide open chest wound 8cm x 7cm x 2cm Oncology consulted; patient does not wish to pursue aggressive intervention Patient was on [facility] prior to admission; will likely opt for hospice in the future but does not want readmission with previous hospice organization Plastic surgery consulted for evaluation/recommendation (3) COPD (chronic obstructive pulmonary disease) (4) Bipolar disorder (5) Gangrene of right foot Comment: Status post right right BKA on 07/11/16 Cultures 07/08/16 with Pseudomonas/Enterobacter Underlying peripheral vascular disease Infectious disease following-IV Zosyn IV vancomycin Symptom Scale: (1) Pain 0-10 Scale: 10 Comment: Intermittent, burning pain in right foot, intermittent pain in chest wound site, temporary relief with medication . (2) Anxiety 0-10 Scale: Unable to quantify Comment: Indicates intermittent anxiety, and long history of anxiety. PRN lorazepam 0.25mg PO available q 8 hours; patient using regularly. (3) Constipation Comment: High risk for constipation secondary to opioids. Currently on Colace 100mg PO two times daily ATC. Will continue to monitor. Pertinent Non-Medical Issues Psychosocial: Single. No children. Lives with brother and sister in law. Spiritual: Not an important part of his life. Legal: Health care surrogate form completed 07/16/2016; patient's brother (Dinh Quinones) is designated as the health surrogate decision maker. Ethical issues impacting care: No known concerns at this time. . Important Contacts * Dinh Quinones, brother: [phone] or [phone] * Princess Quinones, [id number]: [phone] . Prognosis Mr. Quinones is a frail, chronically ill appearing 56-year-old gentleman with gangrene right lower extremity, overall prognosis appears poor. Patient was on hospice services prior to admission, appears hospice appropriate of goals are comfort oriented. . Code Status: No Code Plan * NO CODE * Decision-making: Health care surrogate form completed 07/16/2016; patient's brother (Dinh Quinones) is designated as the health surrogate decision maker. Patient is making decisions with his brother at this time. * Goals: Hospice consult pending * Symptom management-pain: having ongoing pain that is multi factorial likely secondary to recurrent melanoma with large left-sided chest wound, nonhealing wounds, recent BKA, peripheral vascular disease, etc. Pain is rated 8 out of 10 , patient is unwilling to describe pain. Patient is on a Duragesic patch and receives gabapentin 100 mg TID. Percocet (5-325mg) and IV morphine are available every 4 hours PRN and are being administered regularly every 4 hours. * Symptom managementconstipation: High risk for constipation secondary to opioids. Currently on Colace 100mg PO two times daily ATC. Will continue to monitor. LBM 07/21/2016 * Patient does not want further surgeries, refusing chemotherapy/radiation for recurrent melanoma. He and his brother, together, have decided to forego further diagnostic testing/aggressive interventions and are requesting hospice services for symptom management and end-of-life care. Hospice consult has been placed. Patient and family requesting transfer to the [facility] for symptom management of pain, anxiety. * Discussed with nurse (Tia), case management (Hernandez), charge nurse. Dr. Mora notified. * Palliative care will continue to follow throughout hospital course to assist with symptom management and further clarification of treatment goals. . (Tanika Olson) Attestation To help prompt me to consider important information that might be impacting today's encounter and assessment, information from prior notes written by myself or my colleagues may have been "brought forward" into today's note. My signature on this note, however, is an attestation that I personally performed the exam, history, and/or decision-making noted today, and, unless otherwise indicated, the interactions with patient, family, and staff as well as the review of records all occurred today. I also attest that the listed assessment and stated plan reflect my best clinical judgment today based on the combination of historical information, prior notes, and today's exam/ interactions. When time spent is documented, it refers only to time spent today by the signer, or if indicated, combined time spent today by collaborating physician/nurse practitioner. (Tanika Olson) Collaborating MD Comments Discussed with SERGEI, agree with assessment and plan (Shaquille Palmer MD) Tanika Olson Jul 21, 2016 11:00 Shaquille Palmer MD Jul 22, 2016 13:54
[2016-07-21 11:57] VITALS: BP 147/63; PULSE 104; RESP 18; TEMP 98.4; O2SAT 92
--- NOTE | 2016-08-05 16:10 | HHI.DS ---
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 Diagnosis: Principal (3) Cellulitis of foot ICD Code: L03.119 Diagnosis: Principal Procedures 07/10- right BKA Brief History - From Admission fell twice in 2 weeks first tiem walking out of room and foot got stuck with gym equipmenet and fell second time was next week- reaching out to pull curtain and roller got away from him from walker got away and fell again did not hit head d id not pass out did not go for med attention family called hospice staff got more euqipment to help at home on hospice at home has melaoma on right chest diagnosed 20yrs ago had sx had chemo adn radiation last dose chemo about 16-17yrs ago last radiation abotu same time too as far as he knows, no other intervention or med attention for this till now brother set him up on hospice about 2 weeks ago after fall Imaging Last Impressions Lower Extremity Ultrasound 07/17/16 0000 Signed Impressions: Service Date/Time: Sunday, July 17, 2016 14:52 - CONCLUSION: 1. No sonographic evidence for left lower extremity DVT. Roger Aguilar MD PE at Discharge GENERAL: No acute distress. SKIN: Warm and dry. HEAD: Atraumatic. Normocephalic. EYES: Pupils equal and round. No scleral icterus. No injection or drainage. ENT: No nasal bleeding or discharge. Mucous membranes pink and moist. NECK: Trachea midline. No JVD. CARDIOVASCULAR: Regular rate and rhythm. RESPIRATORY: normal breath sounds, no wheezing, right anterior chest wound dressed. GASTROINTESTINAL: Abdomen soft, non-tender, nondistended. Hepatic and splenic margins not palpable. MUSCULOSKELETAL: Right BKA, post op dressing in place, left lower extremity with swelling noted and tender to touch. NEUROLOGICAL: Awake and alert. No obvious cranial nerve deficits. Motor grossly within normal limits. Five out of 5 muscle strength in the arms and legs. Normal speech. PSYCHIATRIC: Appropriate mood and affect; insight and judgment normal. Hospital Course Stable in his bedroom asked about latest decision about Hospice the patient states he is waiting for his Brother who will take the last decision about his case, he lives in [place], and Palliative Care is following. 07/20: Seen in his bedroom, discussed with Student nurse. 07/21; Seen in his bedroom the patient states he does not want to suffer more and wants to go to SNF with Hospice if possible today, No nausea, vomit or diarrhea, Nurse Tia. Assessment and Plan S/P right BKA 07/10 for Acute Right foot gangrene with cellulitis cultures from - Pseudomonas/Enterobacter Underlying Peripheral vascular disease - Vascular surgery following to perform I and D as needed. continue Zosyn and Vancomycin as per ID specialist, Probable Hospice later today. Pain - Percocet prn for pain - IV Morphine 4 mg IV prn, continue on Percocet 5 q 4 prn. ON duragesic patch - Gabapentin 100 mg tid Bipolar disorder- per brother recluse. - continue on Ativan 0,5 mg po q8 - Lopressor 12.5 po bid - BPs 140s/90s Right Chest melanoma S/P wide excision some surrounding cellulitis -Plastic Surgery following, and commissions specialist. - at one point under hospice- palliative care following - d/w wound care team- ? don't do VAC over a malignant wound - area is too wide to close spontaneously - coverage specialist awaiting final by Palliative care to decide next step. closure versus Medical Management. Hyponatremia- asymptomatic. TSH normal left lower extremity edema: u/s of LE to r/o DVT DVT prophylaxiswith heparin drip. GI prophylaxis on pantoprazole. Discussed with Patient and Nurse Miss Weber. pmp certified project manager. Discharge Planning Hospice later today Pt Condition on Discharge: Deteriorating Discharge Disposition: Hospice/Med Facility Discharge Time: > 30 minutes Discharge Instructions DIET: Follow Instructions for: As Tolerated, No Restrictions Activities you can perform: Regular-No Restrictions Francisco Javier Dave MD Aug 05, 2016 16:10
== END 2016-07-21 15:07 | disposition hospice, inpatient (51) | DRG 240 ==
LOC: NEDDLT 19:45 → N04A 19:46
PROVIDERS: ADMIT Internal Medicine; ATTEND Internal Medicine
PROC: 0Y6H0Z1 Detachment at Right Lower Leg, High, Open Approach (ICD-10-PCS; principal; 2016-07-10 11:28)
DX: I74.3 Embolism and thrombosis of arteries of the lower extremities (principal); L03.115 Cellulitis of right lower limb; R64 Cachexia; C43.59 Malignant melanoma of other part of trunk; E87.1 Hypo-osmolality and hyponatremia; L03.313 Cellulitis of chest wall; I96 Gangrene, not elsewhere classified; J44.9 Chronic obstructive pulmonary disease, unspecified; R00.0 Tachycardia, unspecified; K59.00 Constipation, unspecified; R60.0 Localized edema; R26.2 Difficulty in walking, not elsewhere classified; B96.5 Pseudomonas (aeruginosa) (mallei) (pseudomallei) as the cause of diseases classified elsewhere; B96.89 Other specified bacterial agents as the cause of diseases classified elsewhere; F10.21 Alcohol dependence, in remission; F31.9 Bipolar disorder, unspecified; F41.9 Anxiety disorder, unspecified; F17.210 Nicotine dependence, cigarettes, uncomplicated; W08.XXXA Fall from other furniture, initial encounter; Y93.A1 Activity, exercise machines primarily for cardiorespiratory conditioning; Z53.29 Procedure and treatment not carried out because of patient's decision for other reasons; Z51.5 Encounter for palliative care; Z81.1 Family history of alcohol abuse and dependence; Z81.8 Family history of other mental and behavioral disorders; Z91.19 Patient's noncompliance with other medical treatment and regimen; Z92.21 Personal history of antineoplastic chemotherapy; Z92.3 Personal history of irradiation
CPT/HCPCS: 36430; 71010; 73630; 80048; 80053; 80202; 82565; 82728; 83540; 83550; 83605; 84443; 85025; 85027; 85610; 85730; 86850; 86900; 86901; 86920; 87040; 87070; 87077; 87186; 88307; 88311; 93005; 93971; 96365; J0131; J1170; J1644; J2060; J2250; J2270; J2370; J2543; J3010; J3370; J7030; J7040; J7050; P9016